=== PATIENT | male | born 1960 | race Caucasian/White ===

== ENCOUNTER → 2018-12-22 | Day surgery (SDC) | payer MEDICARE ==
[~2018-12-22] MED LIST: ALDACTONE25 MG PO; AMIODARONE HCL200 MG PO; Acetazolamide PO; BACITRACIN 50,000 UNIT VIAL ONE; BUPIVACAINE HCL 0.5% INJ 30 ML VIAL INJ ONE; CEFAZOLIN SOD 1 GM/NS 50ML 50 ML IV ONE; COUMADIN5 MG PO; FERROUS SULFAT325 MG PO; FLOMAX0.4 MG PO; FUROSEMIDE10 MG/1 M1 PO; GENERLAC10 GM/15 M PO; LIDOCAINE 1% W/EPINEPHRINE 20 ML VIAL ONE; METOPROLOL SUCC25 MG PO; MUPIROCIN 2% OINT 22 GM TUBE ONE; PANTOPRAZOLE SO40 MG PO; POTASSIUM CHLO20 ME1 PO; SYNTHROID50 MCG PO; TORSEMIDE10 MG PO
--- OUTSIDE RECORDS SUMMARY | 2018-12-22 05:52 | XMS REPORT | Clinical Summary ---
Author Author [facility] Address Unknown Phone Unavailable Care Team Providers Care Furnace Combustion Tester Name Role Phone Uriel Landrum PCP Allergies Comments Active Allergy Reactions Severity Noted Date Sulfa (Sulfonamide 01/23/2017 Antibiotics) Medications End Date Status Medication Sig Dispensed Refills Start Date Active acetaZOLAMIDE (DIAMOX) Take 500 mg 0 250 MG tablet by mouth 2 (two) times daily. Active pantoprazole (PROTONIX) Take 40 mg by 0 40 MG tablet mouth 2 (two) times daily. Active tamsulosin (FLOMAX) 0.4 Take 0.4 mg 0 mg Cp24 24 hr capsule by mouth daily. Active amiodarone (PACERONE) 200 Take 200 mg 0 MG tablet by mouth 2 (two) times daily. Active ferrous sulfate 325 (65 Take 325 mg 0 FE) MG tablet by mouth 2 (two) times daily before meals. Active lactulose (CEPHULAC) 10 Take 30 g by 0 gram packet mouth daily. Active torsemide (DEMADEX) 20 MG Take 20 mg by 0 tablet mouth 3 (three) times daily . Active potassium chloride SA Take 20 mEq 0 (K-DUR,KLOR-CON) 20 MEQ by mouth 2 tablet (two) times daily. Active bacitracin 500 unit/gram Apply 1 1 packet 30 Pack packet packet 7 topically 2 (two) times daily. 02/20/2018 aspirin 325 MG EC tablet Take 1 tablet 0 (325 mg 7 total) by mouth daily. 02/20/2018 levETIRAcetam (KEPPRA) Take 2 120 tablet 11 750 MG tablet tablets 7 (1,500 mg total) by mouth 2 (two) times daily. 02/20/2018 levothyroxine (SYNTHROID, Take 1 tablet 30 tablet LEVOTHROID) 125 MCG (125 mcg 7 tablet total) by mouth Every morning on an empty stomach. 02/20/2018 metoprolol (LOPRESSOR) 25 Take 0.5 30 tablet MG tablet tablets (12.5 7 mg total) by mouth 2 (two) times daily. Active Problems Problem Noted Date Constipation 02/01/2017 Urinary retention 02/01/2017 JORGE L (acute kidney injury) 01/28/2017 Hypothyroidism 01/28/2017 BPH (benign prostatic hypertrophy) 01/28/2017 Physical deconditioning 01/28/2017 Fracture, foot 01/28/2017 Rhabdomyolysis 01/28/2017 Pericardial effusion 01/28/2017 Dysphagia 01/28/2017 Idiopathic hypotension 01/27/2017 Cellulitis and abscess of leg 01/27/2017 Intraventricular hemorrhage 01/24/2017 Respiratory failure requiring intubation 01/24/2017 Atrial fibrillation 01/24/2017 Coagulopathy 01/24/2017 Essential hypertension 01/24/2017 ICH (intracerebral hemorrhage) 01/23/2017 Social History Date Tobacco Use Types Packs/Day Years Used Unknown If Ever Smoked Sex Assigned at Date Recorded Not on file Industry Job Start Date Occupation Not on file Not on file Not on file Travel End Travel History Travel Start No recent travel history available. Last Filed Vital Signs Not on file Plan of Treatment Not on file Implants Device Identifier Shelf Expiration Date Model / Serial / Lot Implanted Type Area Manufactur er 08/27/2017 [id number] / / [id number] Drsng Mtrx Bilayer 2x2in Strx1 Tissue Left: Foot [employer] [id number] - [id number] Graft/Subs LIFESCI Implanted: Qty: 1 on 02/03/2017 by Guanaco Mendoza DPM Results Not on fileafter 12/21/2017 Insurance Payer Benefit Subscriber ID Type Phone Address Plan / Group [employer]UE [employer] BCBS ADV xxxxxxxxxxxx [phone] [id number] [place] [address] EXCHANGE Advance Directives For more information, please contact: [address] [address] Date Inactivated Comments Code Status Date Activated 02/20/2017 11:29 PM Full Code 01/30/2017 5:41 AM This code status was determined by: Patient 01/29/2017 9:32 PM Full Code 01/23/2017 9:12 PM This code status was determined by: Patient
--- OUTSIDE RECORDS SUMMARY | 2018-12-22 05:53 | XMS REPORT ---
Author Author [facility] Address Unknown Phone Unavailable Care Team Providers Care Motorcycle Repairer Name Role Phone DORIS KEVIN Unavailable Unavailable Problems This patient has no known problems. Allergies, Adverse Reactions, Alerts This patient has no known allergies or adverse reactions. Medications This patient has no known medications. Results Test Description Test Time Test Comments Text Results Atomic Results Result Comments POCT-GLUCOSE METER 2017-02-20 11:09:00 POC-GLUCOSE METER (BEAKER) (test dgem=0793) 112 mg/dL 70-110 TESTED AT [address] [address] POCT-GLUCOSE [id number] 07:44:00* Test Item Value Reference Range Comments POC-GLUCOSE METER (BEAKER) (test eivn=5385) 100 mg/dL 70-110 TESTED AT [place] [id number] [facility] [address] [id number] 06:38:00* Test Item Value Reference Range Comments MAGNESIUM (BEAKER) (test qfmr=658) 1.5 mg/dL 1.6-2.6 COMPREHENSIVE METABOLIC [id number] 06:38:00* Test Item Value Reference Range Comments TOTAL PROTEIN (BEAKER) (test zhan=008) 6.0 gm/dL 6.0-8.3 ALBUMIN (BEAKER) (test ttpe=7288) 3.0 g/dL 3.5-5.0 ALKALINE PHOSPHATASE (BEAKER) (test aosf=236) 107 U/L 40-150 BILIRUBIN TOTAL (BEAKER) (test zixt=788) 0.6 mg/dL 0.2-1.2 SODIUM (BEAKER) (test thyq=231) 139 meq/L 136-145 POTASSIUM (BEAKER) (test qrky=744) 4.0 meq/L 3.5-5.1 CHLORIDE (BEAKER) (test aflm=033) 108 meq/L 98-107 CO2 (BEAKER) (test jtmt=627) 26 meq/L 22-29 BLOOD UREA NITROGEN (BEAKER) (test hzhn=590) 9 mg/dL 7-21 CREATININE (BEAKER) (test nvry=906) 0.84 mg/dL 0.57-1.25 GLUCOSE RANDOM (BEAKER) (test wpzp=260) 87 mg/dL 70-105 CALCIUM (BEAKER) (test dzww=124) 8.7 mg/dL 8.4-10.2 AST (SGOT) (BEAKER) (test ptmf=707) 22 U/L 5-34 ALT (SGPT) (BEAKER) (test kczw=900) 11 U/L 6-55 EGFR (BEAKER) (test tnyf=3256) 94 mL/min/1.73 sq m ESTIMATED GFR IS NOT ACCURATE CREATININE CLEARANCE IN PREDICTING GLOMERULAR FILTRATION RATE. ESTIMATED GFR IS NOT APPLICABLE FOR DIALYSIS PATIENTS. [id number] 06:34:00* Test Item Value Reference Range Comments PHOSPHORUS (BEAKER) (test pmir=811) 2.0 mg/dL 2.3-4.7 POCT-GLUCOSE [id number] 23:19:00* Test Item Value Reference Range Comments POC-GLUCOSE METER (BEAKER) (test fvjm=3669) 99 mg/dL 70-110 TESTED AT [address] [address] POCT-GLUCOSE [id number] 21:02:00* Test Item Value Reference Range Comments POC-GLUCOSE METER (BEAKER) (test mfma=6462) 82 mg/dL 70-110 TESTED AT [address] [address] POCT-GLUCOSE [id number] 16:31:00* Test Item Value Reference Range Comments POC-GLUCOSE METER (BEAKER) (test hscm=4681) 93 mg/dL 70-110 TESTED AT [address] [address] POCT-GLUCOSE [id number] 12:01:00* Test Item Value Reference Range Comments POC-GLUCOSE METER (BEAKER) (test bfhh=7724) 138 mg/dL 70-110 TESTED AT [address] [address] POCT-GLUCOSE [id number] 08:02:00* Test Item Value Reference Range Comments POC-GLUCOSE METER (BEAKER) (test qwrk=6814) 95 mg/dL 70-110 TESTED AT [place] [address] [facility] [address] CBC W/PLT COUNT & AUTO [id number] 07:50:00* Test Item Value Reference Range Comments WHITE BLOOD CELL COUNT (BEAKER) (test ngzb=655) 6.2 K/ L 3.5-10.5 RED BLOOD CELL COUNT (BEAKER) (test yaci=592) 2.97 M/ L 4.63-6.08 HEMOGLOBIN (BEAKER) (test meza=084) 9.6 GM/DL 13.7-17.5 HEMATOCRIT (BEAKER) (test myzf=389) 31.4 % 40.1-51.0 MEAN CORPUSCULAR VOLUME (BEAKER) (test jynp=829) 105.7 fL 79.0-92.2 MEAN CORPUSCULAR HEMOGLOBIN (BEAKER) (test bnwr=482) 32.3 pg 25.7-32.2 MEAN CORPUSCULAR HEMOGLOBIN CONC (BEAKER) (test iqjc=481) 30.6 GM/DL 32.3-36.5 RED CELL DISTRIBUTION WIDTH (BEAKER) (test mvjc=838) 14.8 % 11.6-14.4 PLATELET COUNT (BEAKER) (test cxrt=181) 144 K/CU MM 150-450 MEAN PLATELET VOLUME (BEAKER) (test tirx=437) 10.6 fL 9.4-12.4 NUCLEATED RED BLOOD CELLS (BEAKER) (test powv=222) 0 /100 WBC 0-0 NEUTROPHILS RELATIVE PERCENT (BEAKER) (test bfrw=189) 61 % LYMPHOCYTES RELATIVE PERCENT (BEAKER) (test uwfw=017) 19 % MONOCYTES RELATIVE PERCENT (BEAKER) (test rqgw=036) 13 % EOSINOPHILS RELATIVE PERCENT (BEAKER) (test natv=900) 2 % BASOPHILS RELATIVE PERCENT (BEAKER) (test xwsg=231) 1 % NEUTROPHILS ABSOLUTE COUNT (BEAKER) (test ecwk=394) 3.79 K/ L 1.78-5.38 LYMPHOCYTES ABSOLUTE COUNT (BEAKER) (test lxdo=305) 1.17 K/ L 1.32-3.57 MONOCYTES ABSOLUTE COUNT (BEAKER) (test zljt=919) 0.80 K/ L 0.30-0.82 EOSINOPHILS ABSOLUTE COUNT (BEAKER) (test hbwe=450) 0.11 K/ L 0.04-0.54 BASOPHILS ABSOLUTE COUNT (BEAKER) (test nqnd=912) 0.04 K/ L 0.01-0.08 IMMATURE GRANULOCYTES-RELATIVE PERCENT (BEAKER) (test jxzq=0223) 5 % 0-1 [id number] 06:34:00* Test Item Value Reference Range Comments PHOSPHORUS (BEAKER) (test euyk=184) 1.7 mg/dL 2.3-4.7 [id number] 06:34:00* Test Item Value Reference Range Comments MAGNESIUM (BEAKER) (test cbbq=710) 1.5 mg/dL 1.6-2.6 COMPREHENSIVE METABOLIC [id number] 06:34:00* Test Item Value Reference Range Comments TOTAL PROTEIN (BEAKER) (test vcek=682) 6.1 gm/dL 6.0-8.3 ALBUMIN (BEAKER) (test dbli=2531) 3.0 g/dL 3.5-5.0 ALKALINE PHOSPHATASE (BEAKER) (test ybcy=374) 108 U/L 40-150 BILIRUBIN TOTAL (BEAKER) (test pabl=802) 0.5 mg/dL 0.2-1.2 SODIUM (BEAKER) (test ylho=163) 138 meq/L 136-145 POTASSIUM (BEAKER) (test ulwi=099) 4.1 meq/L 3.5-5.1 CHLORIDE (BEAKER) (test wfeg=559) 108 meq/L 98-107 CO2 (BEAKER) (test dkcm=818) 23 meq/L 22-29 BLOOD UREA NITROGEN (BEAKER) (test ejve=403) 12 mg/dL 7-21 CREATININE (BEAKER) (test tfuv=224) 0.96 mg/dL 0.57-1.25 GLUCOSE RANDOM (BEAKER) (test sggt=330) 86 mg/dL 70-105 CALCIUM (BEAKER) (test qipo=776) 8.7 mg/dL 8.4-10.2 AST (SGOT) (BEAKER) (test kprj=461) 24 U/L 5-34 ALT (SGPT) (BEAKER) (test hedb=445) 13 U/L 6-55 EGFR (BEAKER) (test sjvf=6542) 81 mL/min/1.73 sq m ESTIMATED GFR IS NOT ACCURATE CREATININE CLEARANCE IN PREDICTING GLOMERULAR FILTRATION RATE. ESTIMATED GFR IS NOT APPLICABLE FOR DIALYSIS PATIENTS. CALCIUM, [id number] 04:24:00* Test Item Value Reference Range Comments CALCIUM IONIZED (BEAKER) (test pttl=157) 1.19 mmol/L 1.12-1.27 PH, BLOOD (BEAKER) (test wbge=6504) 7.36 POCT-GLUCOSE [id number] 21:20:00* Test Item Value Reference Range Comments POC-GLUCOSE METER (BEAKER) (test yjsh=8934) 106 mg/dL 70-110 TESTED AT [address] [address] POCT-GLUCOSE [id number] 16:41:00* Test Item Value Reference Range Comments POC-GLUCOSE METER (BEAKER) (test fxta=3655) 109 mg/dL 70-110 TESTED AT [address] [address] POCT-GLUCOSE [id number] 11:56:00* Test Item Value Reference Range Comments POC-GLUCOSE METER (BEAKER) (test agej=2458) 138 mg/dL 70-110 TESTED AT [address] [address] POCT-GLUCOSE [id number] 08:05:00* Test Item Value Reference Range Comments POC-GLUCOSE METER (BEAKER) (test hapv=1702) 107 mg/dL 70-110 TESTED AT [address] [address] CBC W/PLT COUNT & AUTO [id number] 07:18:00* Test Item Value Reference Range Comments WHITE BLOOD CELL COUNT (BEAKER) (test rugu=959) 6.4 K/ L 3.5-10.5 RED BLOOD CELL COUNT (BEAKER) (test eyrn=353) 2.95 M/ L 4.63-6.08 HEMOGLOBIN (BEAKER) (test vjwo=653) 9.6 GM/DL 13.7-17.5 HEMATOCRIT (BEAKER) (test fziv=887) 30.8 % 40.1-51.0 MEAN CORPUSCULAR VOLUME (BEAKER) (test kzkd=518) 104.4 fL 79.0-92.2 MEAN CORPUSCULAR HEMOGLOBIN (BEAKER) (test hiea=950) 32.5 pg 25.7-32.2 MEAN CORPUSCULAR HEMOGLOBIN CONC (BEAKER) (test taso=034) 31.2 GM/DL 32.3-36.5 RED CELL DISTRIBUTION WIDTH (BEAKER) (test jpmp=510) 14.8 % 11.6-14.4 PLATELET COUNT (BEAKER) (test ugxv=067) 157 K/CU MM 150-450 MEAN PLATELET VOLUME (BEAKER) (test ghie=452) 10.4 fL 9.4-12.4 NUCLEATED RED BLOOD CELLS (BEAKER) (test efjp=275) 0 /100 WBC 0-0 NEUTROPHILS RELATIVE PERCENT (BEAKER) (test buaz=264) 61 % LYMPHOCYTES RELATIVE PERCENT (BEAKER) (test duwu=697) 17 % MONOCYTES RELATIVE PERCENT (BEAKER) (test djze=967) 14 % EOSINOPHILS RELATIVE PERCENT (BEAKER) (test bgjf=271) 1 % BASOPHILS RELATIVE PERCENT (BEAKER) (test sbrj=158) 1 % NEUTROPHILS ABSOLUTE COUNT (BEAKER) (test ysqp=303) 3.85 K/ L 1.78-5.38 LYMPHOCYTES ABSOLUTE COUNT (BEAKER) (test fono=615) 1.05 K/ L 1.32-3.57 MONOCYTES ABSOLUTE COUNT (BEAKER) (test ozlw=348) 0.91 K/ L 0.30-0.82 EOSINOPHILS ABSOLUTE COUNT (BEAKER) (test zixq=433) 0.09 K/ L 0.04-0.54 BASOPHILS ABSOLUTE COUNT (BEAKER) (test xsit=393) 0.04 K/ L 0.01-0.08 IMMATURE GRANULOCYTES-RELATIVE PERCENT (BEAKER) (test wmun=6761) 7 % 0-1 [id number] 07:14:00* Test Item Value Reference Range Comments PHOSPHORUS (BEAKER) (test zosl=679) 2.3 mg/dL 2.3-4.7 [id number] 07:14:00* Test Item Value Reference Range Comments MAGNESIUM (BEAKER) (test weel=183) 1.7 mg/dL 1.6-2.6 COMPREHENSIVE METABOLIC [id number] 07:14:00* Test Item Value Reference Range Comments TOTAL PROTEIN (BEAKER) (test sbdv=418) 6.2 gm/dL 6.0-8.3 ALBUMIN (BEAKER) (test jnid=1290) 3.1 g/dL 3.5-5.0 ALKALINE PHOSPHATASE (BEAKER) (test nycm=965) 108 U/L 40-150 BILIRUBIN TOTAL (BEAKER) (test nwqa=256) 0.6 mg/dL 0.2-1.2 SODIUM (BEAKER) (test xauu=268) 137 meq/L 136-145 POTASSIUM (BEAKER) (test wujy=470) 3.9 meq/L 3.5-5.1 CHLORIDE (BEAKER) (test dtdf=105) 106 meq/L 98-107 CO2 (BEAKER) (test solk=022) 25 meq/L 22-29 BLOOD UREA NITROGEN (BEAKER) (test ffiq=139) 12 mg/dL 7-21 CREATININE (BEAKER) (test eclf=065) 1.07 mg/dL 0.57-1.25 GLUCOSE RANDOM (BEAKER) (test ubky=821) 98 mg/dL 70-105 CALCIUM (BEAKER) (test gpzl=679) 8.5 mg/dL 8.4-10.2 AST (SGOT) (BEAKER) (test dneg=196) 25 U/L 5-34 ALT (SGPT) (BEAKER) (test gegs=566) 13 U/L 6-55 EGFR (BEAKER) (test tlgf=7200) 71 mL/min/1.73 sq m ESTIMATED GFR IS NOT ACCURATE CREATININE CLEARANCE IN PREDICTING GLOMERULAR FILTRATION RATE. ESTIMATED GFR IS NOT APPLICABLE FOR DIALYSIS PATIENTS. CALCIUM, [id number] 06:59:00* Test Item Value Reference Range Comments CALCIUM IONIZED (BEAKER) (test nogu=686) 1.05 mmol/L 1.12-1.27 PH, BLOOD (BEAKER) (test qegv=0602) 7.29 POCT-GLUCOSE [id number] 20:51:00* Test Item Value Reference Range Comments POC-GLUCOSE METER (BEAKER) (test grbd=1354) 122 mg/dL 70-110 TESTED AT [facility] [address] [facility] [address] POCT-GLUCOSE [id number] 18:09:00* Test Item Value Reference Range Comments POC-GLUCOSE METER (BEAKER) (test gnmu=2879) 108 mg/dL 70-110 TESTED AT [facility] [address] [facility] [address] HEMOGLOBIN AND [id number] 14:40:00* Test Item Value Reference Range Comments HEMOGLOBIN (BEAKER) (test wmid=815) 10.0 GM/DL 13.7-17.5 HEMATOCRIT (BEAKER) (test oqma=240) 32.0 % 40.1-51.0 POCT-GLUCOSE [id number] 12:44:00* Test Item Value Reference Range Comments POC-GLUCOSE METER (BEAKER) (test rbzn=8367) 119 mg/dL 70-110 TESTED AT [facility] [address] [facility] [address] POCT-GLUCOSE [id number] 07:50:00* Test Item Value Reference Range Comments POC-GLUCOSE METER (BEAKER) (test snew=7121) 90 mg/dL 70-110 TESTED AT [facility] [address] [facility] [address] [id number] 07:37:00* Test Item Value Reference Range Comments PHOSPHORUS (BEAKER) (test jxeb=606) 2.3 mg/dL 2.3-4.7 Specimen slightly hemolyzed COMPREHENSIVE METABOLIC [id number] 07:37:00* Test Item Value Reference Range Comments TOTAL PROTEIN (BEAKER) (test rmzs=872) 6.9 gm/dL 6.0-8.3 Specimen slightly hemolyzed ALBUMIN (BEAKER) (test oehi=5794) 3.3 g/dL 3.5-5.0 Specimen slightly hemolyzed ALKALINE PHOSPHATASE (BEAKER) (test heyw=013) 113 U/L 40-150 BILIRUBIN TOTAL (BEAKER) (test xjin=240) 0.7 mg/dL 0.2-1.2 Specimen slightly hemolyzed SODIUM (BEAKER) (test ydce=028) 139 meq/L 136-145 POTASSIUM (BEAKER) (test liem=399) 3.8 meq/L 3.5-5.1 Specimen slightly hemolyzed CHLORIDE (BEAKER) (test wggp=042) 105 meq/L 98-107 CO2 (BEAKER) (test rjbf=766) 24 meq/L 22-29 BLOOD UREA NITROGEN (BEAKER) (test qcsf=570) 17 mg/dL 7-21 CREATININE (BEAKER) (test tnpl=965) 1.37 mg/dL 0.57-1.25 Specimen slightly hemolyzed GLUCOSE RANDOM (BEAKER) (test dcxl=012) 81 mg/dL 70-105 CALCIUM (BEAKER) (test qvrc=399) 8.4 mg/dL 8.4-10.2 AST (SGOT) (BEAKER) (test ecjn=700) 27 U/L 5-34 Specimen slightly hemolyzed ALT (SGPT) (BEAKER) (test ttoq=881) 14 U/L 6-55 Specimen slightly hemolyzed EGFR (BEAKER) (test itru=5833) 54 mL/min/1.73 sq m ESTIMATED GFR IS NOT ACCURATE CREATININE CLEARANCE IN PREDICTING GLOMERULAR FILTRATION RATE. ESTIMATED GFR IS NOT APPLICABLE FOR DIALYSIS PATIENTS. [id number] 07:36:00* Test Item Value Reference Range Comments MAGNESIUM (BEAKER) (test dpwu=090) 2.0 mg/dL 1.6-2.6 Specimen slightly hemolyzed PROTHROMBIN [id number] 06:12:00* Test Item Value Reference Range Comments PROTIME (BEAKER) (test pigb=325) 15.0 seconds 11.7-14.7 INR (BEAKER) (test vedy=596) 1.2 <=5.9 RECOMMENDED COUMADIN/WARFARIN INR THERAPY RANGESSTANDARD DOSE: 2.0 - 3.0 Inclu abby: PROPHYLAXIS for venous thrombosis, systemic embolization; TREATMENT for odalys ous thrombosis and/or pulmonary embolus.HIGH RISK: Target INR is 2.5-3.5 for pat ients with mechanical heart valves.POCT-GLUCOSE [id number] 21:37:00* Test Item Value Reference Range Comments POC-GLUCOSE METER (BEAKER) (test ajay=8630) 107 mg/dL 70-110 TESTED AT [place] [id number] [facility] [address] POCT-GLUCOSE [id number] 17:07:00* Test Item Value Reference Range Comments POC-GLUCOSE METER (BEAKER) (test uelv=6912) 98 mg/dL 70-110 TESTED AT [place] [id number] [facility] [address] POCT-GLUCOSE [id number] 11:45:00* Test Item Value Reference Range Comments POC-GLUCOSE METER (BEAKER) (test fjqn=2276) 132 mg/dL 70-110 TESTED AT [place] [id number] [facility] [address] POCT-GLUCOSE [id number] 08:15:00* Test Item Value Reference Range Comments POC-GLUCOSE METER (BEAKER) (test bjlr=4822) 137 mg/dL 70-110 TESTED AT [facility] [address] [facility] [address] [id number] 07:11:00* Test Item Value Reference Range Comments PHOSPHORUS (BEAKER) (test cjlj=594) 3.3 mg/dL 2.3-4.7 [id number] 07:11:00* Test Item Value Reference Range Comments MAGNESIUM (BEAKER) (test vjyc=401) 1.6 mg/dL 1.6-2.6 COMPREHENSIVE METABOLIC [id number] 07:11:00* Test Item Value Reference Range Comments TOTAL PROTEIN (BEAKER) (test cfhv=187) 7.0 gm/dL 6.0-8.3 ALBUMIN (BEAKER) (test pzuo=8581) 3.4 g/dL 3.5-5.0 ALKALINE PHOSPHATASE (BEAKER) (test izxq=838) 112 U/L 40-150 BILIRUBIN TOTAL (BEAKER) (test pyku=941) 0.9 mg/dL 0.2-1.2 SODIUM (BEAKER) (test ljzv=729) 135 meq/L 136-145 POTASSIUM (BEAKER) (test uysw=754) 3.5 meq/L 3.5-5.1 CHLORIDE (BEAKER) (test kbgm=965) 99 meq/L 98-107 CO2 (BEAKER) (test rxky=902) 27 meq/L 22-29 BLOOD UREA NITROGEN (BEAKER) (test yzoj=947) 24 mg/dL 7-21 CREATININE (BEAKER) (test pvee=633) 1.81 mg/dL 0.57-1.25 GLUCOSE RANDOM (BEAKER) (test snoc=347) 93 mg/dL 70-105 CALCIUM (BEAKER) (test fysx=199) 8.6 mg/dL 8.4-10.2 AST (SGOT) (BEAKER) (test kcaj=836) 27 U/L 5-34 ALT (SGPT) (BEAKER) (test klfp=890) 14 U/L 6-55 EGFR (BEAKER) (test tmup=4806) 39 mL/min/1.73 sq m ESTIMATED GFR IS NOT ACCURATE CREATININE CLEARANCE IN PREDICTING GLOMERULAR FILTRATION RATE. ESTIMATED GFR IS NOT APPLICABLE FOR DIALYSIS PATIENTS. POCT-GLUCOSE [id number] 21:14:00* Test Item Value Reference Range Comments POC-GLUCOSE METER (BEAKER) (test qqzt=9512) 116 mg/dL 70-110 TESTED AT [facility] [address] [facility] [address] POCT-GLUCOSE [id number] 17:09:00* Test Item Value Reference Range Comments POC-GLUCOSE METER (BEAKER) (test xqzj=0740) 111 mg/dL 70-110 TESTED AT [address] [address] POCT-GLUCOSE [id number] 12:17:00* Test Item Value Reference Range Comments POC-GLUCOSE METER (BEAKER) (test vqpx=0185) 122 mg/dL 70-110 TESTED AT [address] [address] POCT-GLUCOSE [id number] 08:28:00* Test Item Value Reference Range Comments POC-GLUCOSE METER (BEAKER) (test gptk=5988) 110 mg/dL 70-110 TESTED AT [address] [address] URINALYSIS W/ [id number] 07:30:00* Test Item Value Reference Range Comments COLOR (BEAKER) (test jwmf=748) Red CLARITY (BEAKER) (test xlqw=278) Cloudy SPECIFIC GRAVITY UA (BEAKER) (test jstf=866) 1.020 1.001-1.035 PH UA (BEAKER) (test efci=795) 6.0 5.0-8.0 PROTEIN UA (BEAKER) (test lyxz=344) 300 mg/dL Negative GLUCOSE UA (BEAKER) (test vhvn=530) Negative Negative KETONES UA (BEAKER) (test flfh=308) Negative Negative BILIRUBIN UA (BEAKER) (test gwfc=782) Negative Negative BLOOD UA (BEAKER) (test lbzm=135) Large Negative NITRITE UA (BEAKER) (test nqdp=591) Negative Negative LEUKOCYTE ESTERASE UA (BEAKER) (test gyud=873) Small Negative UROBILINOGEN UA (BEAKER) (test ytai=107) 0.2 mg/dL 0.2-1.0 RBC UA (BEAKER) (test yrwl=948) > /HPF WBC UA (BEAKER) (test zfbs=505) > /HPF SOURCE(BEAKER) (test fald=3283) [id number] 07:08:00* Test Item Value Reference Range Comments PHOSPHORUS (BEAKER) (test lvpp=318) 4.9 mg/dL 2.3-4.7 [id number] 07:08:00* Test Item Value Reference Range Comments MAGNESIUM (BEAKER) (test iwou=769) 1.7 mg/dL 1.6-2.6 COMPREHENSIVE METABOLIC [id number] 07:08:00* Test Item Value Reference Range Comments TOTAL PROTEIN (BEAKER) (test ccmx=491) 7.2 gm/dL 6.0-8.3 ALBUMIN (BEAKER) (test kqtd=5311) 3.5 g/dL 3.5-5.0 ALKALINE PHOSPHATASE (BEAKER) (test gejb=608) 118 U/L 40-150 BILIRUBIN TOTAL (BEAKER) (test btlq=859) 1.0 mg/dL 0.2-1.2 SODIUM (BEAKER) (test eduw=960) 142 meq/L 136-145 POTASSIUM (BEAKER) (test abai=447) 3.4 meq/L 3.5-5.1 CHLORIDE (BEAKER) (test bovm=365) 103 meq/L 98-107 CO2 (BEAKER) (test vlto=656) 26 meq/L 22-29 BLOOD UREA NITROGEN (BEAKER) (test oofe=687) 22 mg/dL 7-21 CREATININE (BEAKER) (test kixm=720) 1.82 mg/dL 0.57-1.25 GLUCOSE RANDOM (BEAKER) (test oica=478) 103 mg/dL 70-105 CALCIUM (BEAKER) (test mhse=181) 9.2 mg/dL 8.4-10.2 AST (SGOT) (BEAKER) (test coit=785) 26 U/L 5-34 ALT (SGPT) (BEAKER) (test qsgx=755) 15 U/L 6-55 EGFR (BEAKER) (test cqye=6432) 39 mL/min/1.73 sq m ESTIMATED GFR IS NOT ACCURATE CREATININE CLEARANCE IN PREDICTING GLOMERULAR FILTRATION RATE. ESTIMATED GFR IS NOT APPLICABLE FOR DIALYSIS PATIENTS. B-TYPE NATRIURETIC FACTOR (BNP)2017-02-15 06:50:00* Test Item Value Reference Range Comments B-TYPE NATRIURETIC PEPTIDE (BEAKER) (test whga=761) 53 pg/mL 0-100 POCT-GLUCOSE [id number] 06:13:00* Test Item Value Reference Range Comments POC-GLUCOSE METER (BEAKER) (test cieg=4217) 121 mg/dL 70-110 TESTED AT [address] [address] [id number] 21:58:00* Test Item Value Reference Range Comments MAGNESIUM (BEAKER) (test ubin=571) 1.9 mg/dL 1.6-2.6 BASIC METABOLIC [id number] 21:58:00* Test Item Value Reference Range Comments SODIUM (BEAKER) (test chxd=582) 141 meq/L 136-145 POTASSIUM (BEAKER) (test vchj=157) 3.4 meq/L 3.5-5.1 CHLORIDE (BEAKER) (test aheu=236) 100 meq/L 98-107 CO2 (BEAKER) (test vbxf=667) 30 meq/L 22-29 BLOOD UREA NITROGEN (BEAKER) (test hoyb=681) 19 mg/dL 7-21 CREATININE (BEAKER) (test ihem=112) 1.63 mg/dL 0.57-1.25 GLUCOSE RANDOM (BEAKER) (test eadq=357) 92 mg/dL 70-105 CALCIUM (BEAKER) (test cycl=210) 10.2 mg/dL 8.4-10.2 EGFR (BEAKER) (test ezaa=1176) 44 mL/min/1.73 sq m ESTIMATED GFR IS NOT ACCURATE CREATININE CLEARANCE IN PREDICTING GLOMERULAR FILTRATION RATE. ESTIMATED GFR IS NOT APPLICABLE FOR DIALYSIS PATIENTS. POCT-GLUCOSE [id number] 21:49:00* Test Item Value Reference Range Comments POC-GLUCOSE METER (BEAKER) (test ndwh=1993) 105 mg/dL 70-110 TESTED AT [address] [address] POCT-GLUCOSE [id number] 17:52:00* Test Item Value Reference Range Comments POC-GLUCOSE METER (BEAKER) (test eypv=5724) 105 mg/dL 70-110 TESTED AT [address] [address] POCT-GLUCOSE [id number] 12:08:00* Test Item Value Reference Range Comments POC-GLUCOSE METER (BEAKER) (test scia=7930) 97 mg/dL 70-110 TESTED AT [address] [address] [id number] 06:33:00* Test Item Value Reference Range Comments PHOSPHORUS (BEAKER) (test lvae=774) 3.7 mg/dL 2.3-4.7 [id number] 06:33:00* Test Item Value Reference Range Comments MAGNESIUM (BEAKER) (test civf=942) 1.7 mg/dL 1.6-2.6 COMPREHENSIVE METABOLIC [id number] 06:33:00* Test Item Value Reference Range Comments TOTAL PROTEIN (BEAKER) (test lpdl=903) 6.8 gm/dL 6.0-8.3 ALBUMIN (BEAKER) (test ophr=3775) 3.2 g/dL 3.5-5.0 ALKALINE PHOSPHATASE (BEAKER) (test xfxs=791) 98 U/L 40-150 BILIRUBIN TOTAL (BEAKER) (test ndkl=635) 0.8 mg/dL 0.2-1.2 SODIUM (BEAKER) (test feyv=821) 140 meq/L 136-145 POTASSIUM (BEAKER) (test nuwr=466) 3.5 meq/L 3.5-5.1 CHLORIDE (BEAKER) (test izta=616) 104 meq/L 98-107 CO2 (BEAKER) (test svfr=388) 28 meq/L 22-29 BLOOD UREA NITROGEN (BEAKER) (test henk=999) 19 mg/dL 7-21 CREATININE (BEAKER) (test xhhv=028) 1.43 mg/dL 0.57-1.25 GLUCOSE RANDOM (BEAKER) (test bbii=285) 110 mg/dL 70-105 CALCIUM (BEAKER) (test ksjq=530) 8.9 mg/dL 8.4-10.2 AST (SGOT) (BEAKER) (test lige=930) 19 U/L 5-34 ALT (SGPT) (BEAKER) (test yogu=952) 11 U/L 6-55 EGFR (BEAKER) (test znew=9599) 51 mL/min/1.73 sq m ESTIMATED GFR IS NOT ACCURATE CREATININE CLEARANCE IN PREDICTING GLOMERULAR FILTRATION RATE. ESTIMATED GFR IS NOT APPLICABLE FOR DIALYSIS PATIENTS. POCT-GLUCOSE [id number] 21:13:00* Test Item Value Reference Range Comments POC-GLUCOSE METER (BEAKER) (test azod=2761) 111 mg/dL 70-110 TESTED AT [facility] [address] [facility] [address] POCT-GLUCOSE [id number] 16:58:00* Test Item Value Reference Range Comments POC-GLUCOSE METER (BEAKER) (test lves=6820) 112 mg/dL 70-110 TESTED AT [facility] [address] [facility] [address] POCT-GLUCOSE [id number] 11:14:00* Test Item Value Reference Range Comments POC-GLUCOSE METER (BEAKER) (test zgbb=5110) 132 mg/dL 70-110 TESTED AT [place] [id number] [facility] [address] POCT-GLUCOSE [id number] 08:07:00* Test Item Value Reference Range Comments POC-GLUCOSE METER (BEAKER) (test yccg=0021) 137 mg/dL 70-110 TESTED AT [place] [id number] [facility] [address] [id number] 07:50:00* Test Item Value Reference Range Comments MAGNESIUM (BEAKER) (test dhkh=484) 2.0 mg/dL 1.6-2.6 COMPREHENSIVE METABOLIC [id number] 07:44:00* Test Item Value Reference Range Comments TOTAL PROTEIN (BEAKER) (test flje=401) 7.4 gm/dL 6.0-8.3 ALBUMIN (BEAKER) (test bqoo=3776) 3.5 g/dL 3.5-5.0 ALKALINE PHOSPHATASE (BEAKER) (test gfel=493) 101 U/L 40-150 BILIRUBIN TOTAL (BEAKER) (test grrx=850) 0.8 mg/dL 0.2-1.2 SODIUM (BEAKER) (test thum=935) 141 meq/L 136-145 POTASSIUM (BEAKER) (test siab=502) 3.2 meq/L 3.5-5.1 CHLORIDE (BEAKER) (test acuk=234) 104 meq/L 98-107 CO2 (BEAKER) (test jzjg=292) 27 meq/L 22-29 BLOOD UREA NITROGEN (BEAKER) (test jjej=194) 18 mg/dL 7-21 CREATININE (BEAKER) (test rboh=266) 1.28 mg/dL 0.57-1.25 GLUCOSE RANDOM (BEAKER) (test cghs=940) 111 mg/dL 70-105 CALCIUM (BEAKER) (test yqsl=242) 8.9 mg/dL 8.4-10.2 AST (SGOT) (BEAKER) (test oadw=081) 17 U/L 5-34 ALT (SGPT) (BEAKER) (test wflq=460) 6 U/L 6-55 EGFR (BEAKER) (test ciwg=9103) 58 mL/min/1.73 sq m ESTIMATED GFR IS NOT ACCURATE CREATININE CLEARANCE IN PREDICTING GLOMERULAR FILTRATION RATE. ESTIMATED GFR IS NOT APPLICABLE FOR DIALYSIS PATIENTS. POCT-GLUCOSE [id number] 21:03:00* Test Item Value Reference Range Comments POC-GLUCOSE METER (BEAKER) (test rokn=6669) 119 mg/dL 70-110 TESTED AT [address] [address] POCT-GLUCOSE [id number] 16:53:00* Test Item Value Reference Range Comments POC-GLUCOSE METER (BEAKER) (test wwup=8361) 127 mg/dL 70-110 TESTED AT [address] [address] ANTI-NUCLEAR ANTIBODY (SOURAV)2017-02-12 15:06:00* Test Item Value Reference Range Comments ANTI-NUCLEAR ANTIBODY (SOURAV) (BEAKER) (test vsku=063) Negative Negative POCT-GLUCOSE [id number] 12:07:00* Test Item Value Reference Range Comments POC-GLUCOSE METER (BEAKER) (test sgaf=5784) 117 mg/dL 70-110 TESTED AT [address] [address] POCT-GLUCOSE [id number] 07:51:00* Test Item Value Reference Range Comments POC-GLUCOSE METER (BEAKER) (test gess=5074) 114 mg/dL 70-110 TESTED AT [address] [address] [id number] 05:14:00* Test Item Value Reference Range Comments PHOSPHORUS (BEAKER) (test urps=638) 2.9 mg/dL 2.3-4.7 [id number] 05:14:00* Test Item Value Reference Range Comments MAGNESIUM (BEAKER) (test mywn=158) 1.7 mg/dL 1.6-2.6 COMPREHENSIVE METABOLIC [id number] 05:14:00* Test Item Value Reference Range Comments TOTAL PROTEIN (BEAKER) (test xrgr=513) 6.8 gm/dL 6.0-8.3 ALBUMIN (BEAKER) (test rihb=8103) 3.2 g/dL 3.5-5.0 ALKALINE PHOSPHATASE (BEAKER) (test iokd=762) 95 U/L 40-150 BILIRUBIN TOTAL (BEAKER) (test bqba=839) 0.7 mg/dL 0.2-1.2 SODIUM (BEAKER) (test mhzn=464) 147 meq/L 136-145 POTASSIUM (BEAKER) (test duex=151) 3.3 meq/L 3.5-5.1 CHLORIDE (BEAKER) (test hxjx=481) 110 meq/L 98-107 CO2 (BEAKER) (test yeeo=509) 30 meq/L 22-29 BLOOD UREA NITROGEN (BEAKER) (test ezsg=342) 17 mg/dL 7-21 CREATININE (BEAKER) (test yrya=674) 1.16 mg/dL 0.57-1.25 GLUCOSE RANDOM (BEAKER) (test ekdq=364) 110 mg/dL 70-105 CALCIUM (BEAKER) (test mdor=359) 9.0 mg/dL 8.4-10.2 AST (SGOT) (BEAKER) (test tnhi=609) 14 U/L 5-34 ALT (SGPT) (BEAKER) (test cwga=992) 9 U/L 6-55 EGFR (BEAKER) (test ycrw=9073) 65 mL/min/1.73 sq m ESTIMATED GFR IS NOT ACCURATE CREATININE CLEARANCE IN PREDICTING GLOMERULAR FILTRATION RATE. ESTIMATED GFR IS NOT APPLICABLE FOR DIALYSIS PATIENTS. POCT-GLUCOSE [id number] 21:25:00* Test Item Value Reference Range Comments POC-GLUCOSE METER (BEAKER) (test dszh=1129) 116 mg/dL 70-110 TESTED AT [facility] [address] [facility] [address] POCT-GLUCOSE [id number] 17:01:00* Test Item Value Reference Range Comments POC-GLUCOSE METER (BEAKER) (test zxll=4228) 123 mg/dL 70-110 TESTED AT [facility] [address] [facility] [address] B-TYPE NATRIURETIC FACTOR (BNP)2017-02-11 12:49:00* Test Item Value Reference Range Comments B-TYPE NATRIURETIC PEPTIDE (BEAKER) (test rnzk=872) 62 pg/mL 0-100 HEPATITIS B SURFACE [id number] 12:41:00* Test Item Value Reference Range Comments HEPATITIS B SURFACE ANTIBODY (BEAKER) (test kgks=135) < mIU/mL <8.0 HEPATITIS B SURFACE [id number] 12:38:00* Test Item Value Reference Range Comments HEPATITIS B SURFACE ANTIGEN (2) (BEAKER) (test fiit=6405) Nonreactive Nonreactive ALPHA FETOPROTEIN (AFP), TUMOR [id number] 12:38:00* Test Item Value Reference Range Comments ALPHA-FETOPROTEIN (BEAKER) (test bkic=7904) 3.5 ng/mL <10.0 Effective 06/14/2014: Reference Range ChangeNew: <10.0 Previous: 0.0-8.0 HEPATITIS B CORE ANTIBODY, [id number] 12:38:00* Test Item Value Reference Range Comments HEPATITIS B CORE TOTAL ANTIBODY (BEAKER) (test wjsr=747) Nonreactive Nonreactive HEPATITIS A ANTIBODY, [id number] 12:38:00* Test Item Value Reference Range Comments HEPATITIS A IGG ANTIBODY (BEAKER) (test pchi=6020) Nonreactive Nonreactive HEPATITIS C [id number] 12:38:00* Test Item Value Reference Range Comments HEPATITIS C ANTIBODY (BEAKER) (test oiry=470) Nonreactive Nonreactive POCT-GLUCOSE [id number] 12:33:00* Test Item Value Reference Range Comments POC-GLUCOSE METER (BEAKER) (test nhzt=2668) 131 mg/dL 70-110 TESTED AT [address] [address] CBC W/PLT COUNT & AUTO [id number] 12:20:00* Test Item Value Reference Range Comments WHITE BLOOD CELL COUNT (BEAKER) (test vykb=115) 8.1 K/ L 4.0-10.0 RED BLOOD CELL COUNT (BEAKER) (test hnhh=111) 3.57 M/ L 4.20-5.80 HEMOGLOBIN (BEAKER) (test nlfg=637) 12.0 GM/DL 13.0-16.8 HEMATOCRIT (BEAKER) (test ryrc=916) 37.4 % 40.0-50.0 MEAN CORPUSCULAR VOLUME (BEAKER) (test uykj=403) 105.0 fL 82.0-98.0 MEAN CORPUSCULAR HEMOGLOBIN (BEAKER) (test rjtc=097) 33.7 pg 27.0-33.0 MEAN CORPUSCULAR HEMOGLOBIN CONC (BEAKER) (test qivd=795) 32.2 GM/DL 32.0-36.0 RED CELL DISTRIBUTION WIDTH (BEAKER) (test krbc=412) 14.5 % 10.3-14.2 PLATELET COUNT (BEAKER) (test hdff=426) 195 K/CU MM 150-430 MEAN PLATELET VOLUME (BEAKER) (test ucag=588) 7.6 fL 6.5-10.5 NUCLEATED RED BLOOD CELLS (BEAKER) (test nhjb=360) 0 /100 WBC 0-0 NEUTROPHILS RELATIVE PERCENT (BEAKER) (test uqmh=875) 72 % LYMPHOCYTES RELATIVE PERCENT (BEAKER) (test emvu=991) 13 % MONOCYTES RELATIVE PERCENT (BEAKER) (test xukz=170) 12 % EOSINOPHILS RELATIVE PERCENT (BEAKER) (test akwr=378) 3 % BASOPHILS RELATIVE PERCENT (BEAKER) (test ckpx=327) 1 % NEUTROPHILS ABSOLUTE COUNT (BEAKER) (test vkjf=170) 5.86 K/ L 1.80-8.00 LYMPHOCYTES ABSOLUTE COUNT (BEAKER) (test emez=214) 1.06 K/ L 1.48-4.50 MONOCYTES ABSOLUTE COUNT (BEAKER) (test thrq=091) 0.95 K/ L 0.00-1.30 EOSINOPHILS ABSOLUTE COUNT (BEAKER) (test qolx=513) 0.23 K/ L 0.00-0.50 BASOPHILS ABSOLUTE COUNT (BEAKER) (test yymh=366) 0.04 K/ L 0.00-0.20 [id number] 12:17:00* Test Item Value Reference Range Comments PHOSPHORUS (BEAKER) (test ojag=262) 2.4 mg/dL 2.3-4.7 [id number] 12:17:00* Test Item Value Reference Range Comments MAGNESIUM (BEAKER) (test ahao=548) 1.7 mg/dL 1.6-2.6 COMPREHENSIVE METABOLIC [id number] 12:17:00* Test Item Value Reference Range Comments TOTAL PROTEIN (BEAKER) (test iigz=801) 7.3 gm/dL 6.0-8.3 ALBUMIN (BEAKER) (test tlkk=7654) 3.5 g/dL 3.5-5.0 ALKALINE PHOSPHATASE (BEAKER) (test riyo=772) 104 U/L 40-150 BILIRUBIN TOTAL (BEAKER) (test qyak=384) 0.9 mg/dL 0.2-1.2 SODIUM (BEAKER) (test fueh=703) 145 meq/L 136-145 POTASSIUM (BEAKER) (test guki=115) 3.5 meq/L 3.5-5.1 CHLORIDE (BEAKER) (test ifsa=146) 107 meq/L 98-107 CO2 (BEAKER) (test ybuk=796) 32 meq/L 22-29 BLOOD UREA NITROGEN (BEAKER) (test opmr=002) 15 mg/dL 7-21 CREATININE (BEAKER) (test kkfz=385) 1.22 mg/dL 0.57-1.25 GLUCOSE RANDOM (BEAKER) (test cbql=841) 125 mg/dL 70-105 CALCIUM (BEAKER) (test vzad=334) 9.4 mg/dL 8.4-10.2 AST (SGOT) (BEAKER) (test weqh=445) 17 U/L 5-34 ALT (SGPT) (BEAKER) (test tjai=437) 10 U/L 6-55 EGFR (BEAKER) (test xeuq=5586) 61 mL/min/1.73 sq m ESTIMATED GFR IS NOT ACCURATE CREATININE CLEARANCE IN PREDICTING GLOMERULAR FILTRATION RATE. ESTIMATED GFR IS NOT APPLICABLE FOR DIALYSIS PATIENTS. POCT-GLUCOSE [id number] 07:58:00* Test Item Value Reference Range Comments POC-GLUCOSE METER (BEAKER) (test vuxt=5105) 119 mg/dL 70-110 TESTED AT [place] [id number] [facility] [address] POCT-GLUCOSE [id number] 21:41:00* Test Item Value Reference Range Comments POC-GLUCOSE METER (BEAKER) (test drhe=1617) 115 mg/dL 70-110 TESTED AT [address] [address] POCT-GLUCOSE [id number] 17:30:00* Test Item Value Reference Range Comments POC-GLUCOSE METER (BEAKER) (test mpfh=0707) 115 mg/dL 70-110 TESTED AT [place] [address] [facility] [address] URINE [id number] 09:54:00* Test Item Value Reference Range Comments CULTURE (BEAKER) (test qymw=5670) No growth POCT-GLUCOSE [id number] 07:49:00* Test Item Value Reference Range Comments POC-GLUCOSE METER (BEAKER) (test flzt=2288) 122 mg/dL 70-110 TESTED AT [facility] [address] [facility] [address] [id number] 06:31:00* Test Item Value Reference Range Comments PHOSPHORUS (BEAKER) (test srlb=317) 3.4 mg/dL 2.3-4.7 [id number] 06:31:00* Test Item Value Reference Range Comments MAGNESIUM (BEAKER) (test vwan=111) 1.7 mg/dL 1.6-2.6 COMPREHENSIVE METABOLIC [id number] 06:31:00* Test Item Value Reference Range Comments TOTAL PROTEIN (BEAKER) (test uohg=883) 7.6 gm/dL 6.0-8.3 ALBUMIN (BEAKER) (test mhme=3812) 3.5 g/dL 3.5-5.0 ALKALINE PHOSPHATASE (BEAKER) (test ucvs=046) 110 U/L 40-150 BILIRUBIN TOTAL (BEAKER) (test aaok=308) 0.8 mg/dL 0.2-1.2 SODIUM (BEAKER) (test cisd=830) 141 meq/L 136-145 POTASSIUM (BEAKER) (test ryxq=465) 3.9 meq/L 3.5-5.1 CHLORIDE (BEAKER) (test qjjd=851) 109 meq/L 98-107 CO2 (BEAKER) (test qspq=001) 22 meq/L 22-29 BLOOD UREA NITROGEN (BEAKER) (test trah=877) 14 mg/dL 7-21 CREATININE (BEAKER) (test mqrc=260) 1.04 mg/dL 0.57-1.25 GLUCOSE RANDOM (BEAKER) (test qjnq=928) 113 mg/dL 70-105 CALCIUM (BEAKER) (test vpxd=027) 9.3 mg/dL 8.4-10.2 AST (SGOT) (BEAKER) (test lzmv=087) 18 U/L 5-34 ALT (SGPT) (BEAKER) (test yqmm=262) 10 U/L 6-55 EGFR (BEAKER) (test thve=1648) 74 mL/min/1.73 sq m ESTIMATED GFR IS NOT ACCURATE CREATININE CLEARANCE IN PREDICTING GLOMERULAR FILTRATION RATE. ESTIMATED GFR IS NOT APPLICABLE FOR DIALYSIS PATIENTS. POCT-GLUCOSE [id number] 21:29:00* Test Item Value Reference Range Comments POC-GLUCOSE METER (BEAKER) (test qfyg=9882) 106 mg/dL 70-110 TESTED AT [facility] [address] [facility] [address] POCT-GLUCOSE [id number] 09:35:00* Test Item Value Reference Range Comments POC-GLUCOSE METER (BEAKER) (test pygw=0199) 112 mg/dL 70-110 TESTED AT [facility] [address] [facility] [address] [id number] 06:29:00* Test Item Value Reference Range Comments PHOSPHORUS (BEAKER) (test cboy=548) 3.3 mg/dL 2.3-4.7 [id number] 06:29:00* Test Item Value Reference Range Comments MAGNESIUM (BEAKER) (test iqxz=483) 1.7 mg/dL 1.6-2.6 COMPREHENSIVE METABOLIC [id number] 06:29:00* Test Item Value Reference Range Comments TOTAL PROTEIN (BEAKER) (test uiab=834) 7.1 gm/dL 6.0-8.3 ALBUMIN (BEAKER) (test izny=6274) 3.4 g/dL 3.5-5.0 ALKALINE PHOSPHATASE (BEAKER) (test oxcb=484) 110 U/L 40-150 BILIRUBIN TOTAL (BEAKER) (test xtga=276) 0.6 mg/dL 0.2-1.2 SODIUM (BEAKER) (test yocg=294) 140 meq/L 136-145 POTASSIUM (BEAKER) (test lfwm=093) 3.5 meq/L 3.5-5.1 CHLORIDE (BEAKER) (test dznw=597) 112 meq/L 98-107 CO2 (BEAKER) (test agzw=135) 21 meq/L 22-29 BLOOD UREA NITROGEN (BEAKER) (test gapq=967) 14 mg/dL 7-21 CREATININE (BEAKER) (test qast=436) 0.95 mg/dL 0.57-1.25 GLUCOSE RANDOM (BEAKER) (test xmlk=774) 106 mg/dL 70-105 CALCIUM (BEAKER) (test wlge=052) 9.4 mg/dL 8.4-10.2 AST (SGOT) (BEAKER) (test xbkj=450) 21 U/L 5-34 ALT (SGPT) (BEAKER) (test letv=887) 12 U/L 6-55 EGFR (BEAKER) (test mgky=0512) 82 mL/min/1.73 sq m ESTIMATED GFR IS NOT ACCURATE CREATININE CLEARANCE IN PREDICTING GLOMERULAR FILTRATION RATE. ESTIMATED GFR IS NOT APPLICABLE FOR DIALYSIS PATIENTS. POCT-GLUCOSE [id number] 21:44:00* Test Item Value Reference Range Comments POC-GLUCOSE METER (BEAKER) (test nzyk=3504) 97 mg/dL 70-110 TESTED AT [address] [address] POCT-GLUCOSE [id number] 17:55:00* Test Item Value Reference Range Comments POC-GLUCOSE METER (BEAKER) (test zhtr=5194) 103 mg/dL 70-110 TESTED AT [address] [address] [id number] 14:13:00* Test Item Value Reference Range Comments LIPASE (BEAKER) (test tjhc=198) 17 U/L 8-78 POCT-GLUCOSE [id number] 12:47:00* Test Item Value Reference Range Comments POC-GLUCOSE METER (BEAKER) (test tdme=9601) 111 mg/dL 70-110 TESTED AT [address] [address] POCT-GLUCOSE [id number] 07:57:00* Test Item Value Reference Range Comments POC-GLUCOSE METER (BEAKER) (test juhi=3159) 124 mg/dL 70-110 TESTED AT [address] [address] [id number] 05:52:00* Test Item Value Reference Range Comments PHOSPHORUS (BEAKER) (test wyby=506) 2.7 mg/dL 2.3-4.7 [id number] 05:52:00* Test Item Value Reference Range Comments MAGNESIUM (BEAKER) (test vqeq=911) 1.7 mg/dL 1.6-2.6 COMPREHENSIVE METABOLIC [id number] 05:52:00* Test Item Value Reference Range Comments TOTAL PROTEIN (BEAKER) (test llgy=280) 6.9 gm/dL 6.0-8.3 ALBUMIN (BEAKER) (test pimi=9254) 3.2 g/dL 3.5-5.0 ALKALINE PHOSPHATASE (BEAKER) (test eawt=783) 95 U/L 40-150 BILIRUBIN TOTAL (BEAKER) (test afhz=438) 0.7 mg/dL 0.2-1.2 SODIUM (BEAKER) (test sdnd=369) 141 meq/L 136-145 POTASSIUM (BEAKER) (test fthw=008) 4.0 meq/L 3.5-5.1 CHLORIDE (BEAKER) (test gkdl=304) 110 meq/L 98-107 CO2 (BEAKER) (test jgay=147) 26 meq/L 22-29 BLOOD UREA NITROGEN (BEAKER) (test gddu=154) 15 mg/dL 7-21 CREATININE (BEAKER) (test bmhp=576) 1.11 mg/dL 0.57-1.25 GLUCOSE RANDOM (BEAKER) (test pdux=772) 102 mg/dL 70-105 CALCIUM (BEAKER) (test uypc=006) 8.9 mg/dL 8.4-10.2 AST (SGOT) (BEAKER) (test pevf=029) 21 U/L 5-34 ALT (SGPT) (BEAKER) (test furk=709) 10 U/L 6-55 EGFR (BEAKER) (test hjdo=2159) 68 mL/min/1.73 sq m ESTIMATED GFR IS NOT ACCURATE CREATININE CLEARANCE IN PREDICTING GLOMERULAR FILTRATION RATE. ESTIMATED GFR IS NOT APPLICABLE FOR DIALYSIS PATIENTS. CBC W/PLT COUNT & AUTO [id number] 05:43:00* Test Item Value Reference Range Comments WHITE BLOOD CELL COUNT (BEAKER) (test yasr=263) 8.2 K/ L 4.0-10.0 RED BLOOD CELL COUNT (BEAKER) (test qiuy=493) 3.41 M/ L 4.20-5.80 HEMOGLOBIN (BEAKER) (test mkxy=422) 11.6 GM/DL 13.0-16.8 HEMATOCRIT (BEAKER) (test gguu=648) 36.3 % 40.0-50.0 MEAN CORPUSCULAR VOLUME (BEAKER) (test ihoj=078) 107.0 fL 82.0-98.0 MEAN CORPUSCULAR HEMOGLOBIN (BEAKER) (test yjsq=798) 33.9 pg 27.0-33.0 MEAN CORPUSCULAR HEMOGLOBIN CONC (BEAKER) (test tpsl=125) 31.8 GM/DL 32.0-36.0 RED CELL DISTRIBUTION WIDTH (BEAKER) (test fggn=316) 14.7 % 10.3-14.2 PLATELET COUNT (BEAKER) (test ioyu=660) 169 K/CU MM 150-430 MEAN PLATELET VOLUME (BEAKER) (test ipjo=018) 7.5 fL 6.5-10.5 NUCLEATED RED BLOOD CELLS (BEAKER) (test noqy=492) 0 /100 WBC 0-0 NEUTROPHILS RELATIVE PERCENT (BEAKER) (test gduu=638) 68 % LYMPHOCYTES RELATIVE PERCENT (BEAKER) (test hsis=099) 16 % MONOCYTES RELATIVE PERCENT (BEAKER) (test tnhr=687) 11 % EOSINOPHILS RELATIVE PERCENT (BEAKER) (test totr=848) 4 % BASOPHILS RELATIVE PERCENT (BEAKER) (test jcby=790) 1 % NEUTROPHILS ABSOLUTE COUNT (BEAKER) (test sbbr=704) 5.58 K/ L 1.80-8.00 LYMPHOCYTES ABSOLUTE COUNT (BEAKER) (test uroz=889) 1.33 K/ L 1.48-4.50 MONOCYTES ABSOLUTE COUNT (BEAKER) (test oimp=230) 0.88 K/ L 0.00-1.30 EOSINOPHILS ABSOLUTE COUNT (BEAKER) (test vhqt=829) 0.34 K/ L 0.00-0.50 BASOPHILS ABSOLUTE COUNT (BEAKER) (test hhbx=590) 0.06 K/ L 0.00-0.20 0.00POCT-GLUCOSE [id number] 21:41:00* Test Item Value Reference Range Comments POC-GLUCOSE METER (BEAKER) (test imlr=0191) 104 mg/dL 70-110 TESTED AT [address] [address] POCT-GLUCOSE [id number] 17:44:00* Test Item Value Reference Range Comments POC-GLUCOSE METER (BEAKER) (test dbof=7089) 101 mg/dL 70-110 TESTED AT [address] [address] POCT-GLUCOSE [id number] 11:36:00* Test Item Value Reference Range Comments POC-GLUCOSE METER (BEAKER) (test ndad=0059) 112 mg/dL 70-110 TESTED AT [facility] [address] [facility] [address] URINE [id number] 09:21:00* Test Item Value Reference Range Comments CULTURE (BEAKER) (test bljo=8804) No growth POCT-GLUCOSE [id number] 07:33:00* Test Item Value Reference Range Comments POC-GLUCOSE METER (BEAKER) (test idtj=4424) 104 mg/dL 70-110 TESTED AT [facility] [address] [facility] [address] CBC W/PLT COUNT & AUTO [id number] 07:02:00* Test Item Value Reference Range Comments WHITE BLOOD CELL COUNT (BEAKER) (test yfwo=055) 7.3 K/ L 4.0-10.0 RED BLOOD CELL COUNT (BEAKER) (test lgpq=710) 3.25 M/ L 4.20-5.80 HEMOGLOBIN (BEAKER) (test dywa=943) 11.4 GM/DL 13.0-16.8 HEMATOCRIT (BEAKER) (test oqzd=135) 34.6 % 40.0-50.0 MEAN CORPUSCULAR VOLUME (BEAKER) (test ovgo=663) 107.0 fL 82.0-98.0 MEAN CORPUSCULAR HEMOGLOBIN (BEAKER) (test jcbp=173) 35.1 pg 27.0-33.0 MEAN CORPUSCULAR HEMOGLOBIN CONC (BEAKER) (test pcin=133) 32.9 GM/DL 32.0-36.0 RED CELL DISTRIBUTION WIDTH (BEAKER) (test inrl=996) 15.8 % 10.3-14.2 PLATELET COUNT (BEAKER) (test nwva=500) 159 K/CU MM 150-430 MEAN PLATELET VOLUME (BEAKER) (test ynuy=651) 7.9 fL 6.5-10.5 NUCLEATED RED BLOOD CELLS (BEAKER) (test msmu=572) 0 /100 WBC 0-0 NEUTROPHILS RELATIVE PERCENT (BEAKER) (test dfny=619) 67 % LYMPHOCYTES RELATIVE PERCENT (BEAKER) (test gvrx=979) 17 % MONOCYTES RELATIVE PERCENT (BEAKER) (test hbfy=368) 11 % EOSINOPHILS RELATIVE PERCENT (BEAKER) (test tiac=115) 4 % BASOPHILS RELATIVE PERCENT (BEAKER) (test amgm=032) 1 % NEUTROPHILS ABSOLUTE COUNT (BEAKER) (test xxjd=226) 4.89 K/ L 1.80-8.00 LYMPHOCYTES ABSOLUTE COUNT (BEAKER) (test sffw=792) 1.22 K/ L 1.48-4.50 MONOCYTES ABSOLUTE COUNT (BEAKER) (test exss=164) 0.80 K/ L 0.00-1.30 EOSINOPHILS ABSOLUTE COUNT (BEAKER) (test hlqi=799) 0.29 K/ L 0.00-0.50 BASOPHILS ABSOLUTE COUNT (BEAKER) (test ezcd=382) 0.07 K/ L 0.00-0.20 [id number] 06:05:00* Test Item Value Reference Range Comments PHOSPHORUS (BEAKER) (test otva=923) 2.4 mg/dL 2.3-4.7 [id number] 06:05:00* Test Item Value Reference Range Comments MAGNESIUM (BEAKER) (test yzrw=682) 1.9 mg/dL 1.6-2.6 COMPREHENSIVE METABOLIC [id number] 06:05:00* Test Item Value Reference Range Comments TOTAL PROTEIN (BEAKER) (test cypa=358) 6.9 gm/dL 6.0-8.3 ALBUMIN (BEAKER) (test glgw=9791) 3.2 g/dL 3.5-5.0 ALKALINE PHOSPHATASE (BEAKER) (test ykwi=794) 93 U/L 40-150 BILIRUBIN TOTAL (BEAKER) (test qtoj=575) 0.6 mg/dL 0.2-1.2 SODIUM (BEAKER) (test tqjs=583) 144 meq/L 136-145 POTASSIUM (BEAKER) (test uuag=450) 4.0 meq/L 3.5-5.1 CHLORIDE (BEAKER) (test iljh=820) 114 meq/L 98-107 CO2 (BEAKER) (test lbje=196) 21 meq/L 22-29 BLOOD UREA NITROGEN (BEAKER) (test rmpi=665) 17 mg/dL 7-21 CREATININE (BEAKER) (test xrfu=321) 1.15 mg/dL 0.57-1.25 GLUCOSE RANDOM (BEAKER) (test bsnh=031) 100 mg/dL 70-105 CALCIUM (BEAKER) (test sapz=137) 9.0 mg/dL 8.4-10.2 AST (SGOT) (BEAKER) (test qigy=554) 19 U/L 5-34 ALT (SGPT) (BEAKER) (test ozgo=856) 10 U/L 6-55 EGFR (BEAKER) (test awif=4995) 66 mL/min/1.73 sq m ESTIMATED GFR IS NOT ACCURATE CREATININE CLEARANCE IN PREDICTING GLOMERULAR FILTRATION RATE. ESTIMATED GFR IS NOT APPLICABLE FOR DIALYSIS PATIENTS. POCT-GLUCOSE [id number] 22:24:00* Test Item Value Reference Range Comments POC-GLUCOSE METER (BEAKER) (test jriu=4454) 117 mg/dL 70-110 TESTED AT [place] [id number] POCT-GLUCOSE [id number] 17:19:00* Test Item Value Reference Range Comments POC-GLUCOSE METER (BEAKER) (test skoy=3986) 117 mg/dL 70-110 TESTED AT [address] [address] POCT-GLUCOSE [id number] 11:48:00* Test Item Value Reference Range Comments POC-GLUCOSE METER (BEAKER) (test hotr=9353) 117 mg/dL 70-110 TESTED AT [address] [address] CBC W/PLT COUNT & AUTO [id number] 10:07:00* Test Item Value Reference Range Comments WHITE BLOOD CELL COUNT (BEAKER) (test obpo=611) 7.2 K/ L 4.0-10.0 RED BLOOD CELL COUNT (BEAKER) (test zyuj=490) 3.26 M/ L 4.20-5.80 HEMOGLOBIN (BEAKER) (test krjx=958) 11.1 GM/DL 13.0-16.8 HEMATOCRIT (BEAKER) (test lqlb=821) 35.2 % 40.0-50.0 MEAN CORPUSCULAR VOLUME (BEAKER) (test opsz=436) 108.0 fL 82.0-98.0 MEAN CORPUSCULAR HEMOGLOBIN (BEAKER) (test drif=841) 34.0 pg 27.0-33.0 MEAN CORPUSCULAR HEMOGLOBIN CONC (BEAKER) (test eoub=970) 31.5 GM/DL 32.0-36.0 RED CELL DISTRIBUTION WIDTH (BEAKER) (test awfr=198) 14.7 % 10.3-14.2 PLATELET COUNT (BEAKER) (test fahs=038) 145 K/CU MM 150-430 MEAN PLATELET VOLUME (BEAKER) (test btzs=217) 7.8 fL 6.5-10.5 NUCLEATED RED BLOOD CELLS (BEAKER) (test xjch=073) 0 /100 WBC 0-0 NEUTROPHILS RELATIVE PERCENT (BEAKER) (test orgx=586) 69 % LYMPHOCYTES RELATIVE PERCENT (BEAKER) (test mmok=688) 15 % MONOCYTES RELATIVE PERCENT (BEAKER) (test lbva=867) 11 % EOSINOPHILS RELATIVE PERCENT (BEAKER) (test cnhs=136) 5 % BASOPHILS RELATIVE PERCENT (BEAKER) (test vroa=581) 1 % NEUTROPHILS ABSOLUTE COUNT (BEAKER) (test rpur=567) 4.96 K/ L 1.80-8.00 LYMPHOCYTES ABSOLUTE COUNT (BEAKER) (test fuus=600) 1.07 K/ L 1.48-4.50 MONOCYTES ABSOLUTE COUNT (BEAKER) (test xdsj=314) 0.77 K/ L 0.00-1.30 EOSINOPHILS ABSOLUTE COUNT (BEAKER) (test ggxj=009) 0.35 K/ L 0.00-0.50 BASOPHILS ABSOLUTE COUNT (BEAKER) (test ymud=531) 0.05 K/ L 0.00-0.20 0.00WOUND CULTURE + GRAM [id number] 09:32:00* Test Item Value Reference Range Comments CULTURE (BEAKER) (test cmeu=7735) STAPHYLOCOCCUS AUREUS 2+ Staphylococcus aureus Ampicillin (test code=26) Ciprofloxacin (test code=7) Clindamycin (test code=10) Daptomycin (test code=59) Erythromycin (test code=4) Gentamicin (test code=18) Gentamicin High Level Synergy (test ecck=422) Levofloxacin (test code=22) Linezolid (test code=40) Moxifloxacin (test code=36) Nitrofurantoin (test code=23) Oxacillin (test code=14) Rifampin (test code=43) Streptomycin High Level Synergy (test bqmo=926) Tetracycline (test code=2) Tigecycline (test vuhy=608) Trimethoprim + Sulfamethoxazole (test code=47) Vancomycin (test code=13) CULTURE (BEAKER) (test hkdb=7710) 2 out of 3 media Fusarium species GRAM STAIN RESULT (BEAKER) (test ipgg=9601) <1+ WBCs GRAM STAIN RESULT (BEAKER) (test rnac=628239) No organisms seen POCT-GLUCOSE [id number] 07:42:00* Test Item Value Reference Range Comments POC-GLUCOSE METER (BEAKER) (test ilbv=8838) 113 mg/dL 70-110 TESTED AT [facility] [address] [facility] [address] [id number] 07:10:00* Test Item Value Reference Range Comments PHOSPHORUS (BEAKER) (test zfdf=262) 2.5 mg/dL 2.3-4.7 [id number] 07:10:00* Test Item Value Reference Range Comments MAGNESIUM (BEAKER) (test lruq=867) 1.9 mg/dL 1.6-2.6 COMPREHENSIVE METABOLIC [id number] 07:10:00* Test Item Value Reference Range Comments TOTAL PROTEIN (BEAKER) (test zgey=565) 6.7 gm/dL 6.0-8.3 ALBUMIN (BEAKER) (test focp=7934) 3.0 g/dL 3.5-5.0 ALKALINE PHOSPHATASE (BEAKER) (test cklu=903) 89 U/L 40-150 BILIRUBIN TOTAL (BEAKER) (test zoka=533) 0.7 mg/dL 0.2-1.2 SODIUM (BEAKER) (test ejkd=475) 144 meq/L 136-145 POTASSIUM (BEAKER) (test xsjr=414) 3.6 meq/L 3.5-5.1 CHLORIDE (BEAKER) (test drru=040) 111 meq/L 98-107 CO2 (BEAKER) (test qfuc=562) 29 meq/L 22-29 BLOOD UREA NITROGEN (BEAKER) (test nzth=066) 18 mg/dL 7-21 CREATININE (BEAKER) (test ufoe=998) 1.23 mg/dL 0.57-1.25 GLUCOSE RANDOM (BEAKER) (test tmzp=406) 110 mg/dL 70-105 CALCIUM (BEAKER) (test rprh=644) 8.8 mg/dL 8.4-10.2 AST (SGOT) (BEAKER) (test ausm=092) 19 U/L 5-34 ALT (SGPT) (BEAKER) (test xnkt=046) 10 U/L 6-55 EGFR (BEAKER) (test vbnj=1453) 61 mL/min/1.73 sq m ESTIMATED GFR IS NOT ACCURATE CREATININE CLEARANCE IN PREDICTING GLOMERULAR FILTRATION RATE. ESTIMATED GFR IS NOT APPLICABLE FOR DIALYSIS PATIENTS. POCT-GLUCOSE [id number] 21:15:00* Test Item Value Reference Range Comments POC-GLUCOSE METER (BEAKER) (test olrv=4910) 128 mg/dL 70-110 TESTED AT [address] [address] POCT-GLUCOSE [id number] 16:47:00* Test Item Value Reference Range Comments POC-GLUCOSE METER (BEAKER) (test vpbn=8603) 105 mg/dL 70-110 TESTED AT [address] [address] POCT-GLUCOSE [id number] 10:46:00* Test Item Value Reference Range Comments POC-GLUCOSE METER (BEAKER) (test wsao=9190) 110 mg/dL 70-110 TESTED AT [address] [address] URINE [id number] 10:20:00* Test Item Value Reference Range Comments CULTURE (BEAKER) (test rdql=2411) No growth CBC W/PLT COUNT & AUTO [id number] 05:46:00* Test Item Value Reference Range Comments WHITE BLOOD CELL COUNT (BEAKER) (test fkyl=892) 10.1 K/ L 4.0-10.0 RED BLOOD CELL COUNT (BEAKER) (test tlut=028) 3.09 M/ L 4.20-5.80 HEMOGLOBIN (BEAKER) (test dflx=125) 10.7 GM/DL 13.0-16.8 HEMATOCRIT (BEAKER) (test cnmt=480) 32.7 % 40.0-50.0 MEAN CORPUSCULAR VOLUME (BEAKER) (test ctdx=727) 106.0 fL 82.0-98.0 MEAN CORPUSCULAR HEMOGLOBIN (BEAKER) (test txcr=262) 34.5 pg 27.0-33.0 MEAN CORPUSCULAR HEMOGLOBIN CONC (BEAKER) (test ohxs=714) 32.6 GM/DL 32.0-36.0 RED CELL DISTRIBUTION WIDTH (BEAKER) (test mssj=235) 14.3 % 10.3-14.2 PLATELET COUNT (BEAKER) (test utbj=128) 146 K/CU MM 150-430 MEAN PLATELET VOLUME (BEAKER) (test dtkh=754) 7.6 fL 6.5-10.5 NUCLEATED RED BLOOD CELLS (BEAKER) (test pdqt=518) 0 /100 WBC 0-0 NEUTROPHILS RELATIVE PERCENT (BEAKER) (test nuia=045) 74 % LYMPHOCYTES RELATIVE PERCENT (BEAKER) (test wjgv=578) 12 % MONOCYTES RELATIVE PERCENT (BEAKER) (test tcva=940) 11 % EOSINOPHILS RELATIVE PERCENT (BEAKER) (test vcir=066) 2 % BASOPHILS RELATIVE PERCENT (BEAKER) (test eeao=590) 1 % NEUTROPHILS ABSOLUTE COUNT (BEAKER) (test navd=169) 7.53 K/ L 1.80-8.00 LYMPHOCYTES ABSOLUTE COUNT (BEAKER) (test xgac=542) 1.18 K/ L 1.48-4.50 MONOCYTES ABSOLUTE COUNT (BEAKER) (test rqop=942) 1.15 K/ L 0.00-1.30 EOSINOPHILS ABSOLUTE COUNT (BEAKER) (test rfsm=826) 0.18 K/ L 0.00-0.50 BASOPHILS ABSOLUTE COUNT (BEAKER) (test lyfu=535) 0.10 K/ L 0.00-0.20 [id number] 05:30:00* Test Item Value Reference Range Comments PHOSPHORUS (BEAKER) (test zqqr=024) 2.8 mg/dL 2.3-4.7 [id number] 05:30:00* Test Item Value Reference Range Comments MAGNESIUM (BEAKER) (test etlr=687) 1.8 mg/dL 1.6-2.6 COMPREHENSIVE METABOLIC [id number] 05:30:00* Test Item Value Reference Range Comments TOTAL PROTEIN (BEAKER) (test uwuj=680) 6.7 gm/dL 6.0-8.3 ALBUMIN (BEAKER) (test xjyj=4117) 3.1 g/dL 3.5-5.0 ALKALINE PHOSPHATASE (BEAKER) (test tgfc=098) 87 U/L 40-150 BILIRUBIN TOTAL (BEAKER) (test rgze=134) 0.8 mg/dL 0.2-1.2 SODIUM (BEAKER) (test cjda=048) 142 meq/L 136-145 POTASSIUM (BEAKER) (test rcux=441) 3.3 meq/L 3.5-5.1 CHLORIDE (BEAKER) (test rhuo=887) 108 meq/L 98-107 CO2 (BEAKER) (test vwmo=655) 27 meq/L 22-29 BLOOD UREA NITROGEN (BEAKER) (test idot=399) 21 mg/dL 7-21 CREATININE (BEAKER) (test smrh=119) 1.24 mg/dL 0.57-1.25 GLUCOSE RANDOM (BEAKER) (test dpvj=331) 122 mg/dL 70-105 CALCIUM (BEAKER) (test immc=069) 8.4 mg/dL 8.4-10.2 AST (SGOT) (BEAKER) (test kvep=943) 15 U/L 5-34 ALT (SGPT) (BEAKER) (test pjrx=788) 12 U/L 6-55 EGFR (BEAKER) (test hheq=7858) 60 mL/min/1.73 sq m ESTIMATED GFR IS NOT ACCURATE CREATININE CLEARANCE IN PREDICTING GLOMERULAR FILTRATION RATE. ESTIMATED GFR IS NOT APPLICABLE FOR DIALYSIS PATIENTS. POCT-GLUCOSE [id number] 21:30:00* Test Item Value Reference Range Comments POC-GLUCOSE METER (BEAKER) (test zivh=6206) 142 mg/dL 70-110 TESTED AT [address] [address] HEMOGLOBIN AND [id number] 18:07:00* Test Item Value Reference Range Comments HEMOGLOBIN (BEAKER) (test tydc=512) 11.3 GM/DL 13.0-16.8 HEMATOCRIT (BEAKER) (test zfji=701) 36.2 % 40.0-50.0 CREATINE KINASE (CK)2017-02-04 17:26:00* Test Item Value Reference Range Comments CREATINE KINASE TOTAL (BEAKER) (test kahl=876) 11 U/L 29-200 POCT-GLUCOSE [id number] 17:20:00* Test Item Value Reference Range Comments POC-GLUCOSE METER (BEAKER) (test fbyy=1035) 177 mg/dL 70-110 TESTED AT [address] [address] POCT-GLUCOSE [id number] 14:22:00* Test Item Value Reference Range Comments POC-GLUCOSE METER (BEAKER) (test nmmf=0010) 100 mg/dL 70-110 TESTED AT [facility] [address] [facility] [address] EOSINOPHIL SMEAR, [id number] 11:26:00* Test Item Value Reference Range Comments EOSINOPHIL SMEAR, URINE (BEAKER) (test uwqk=0097) No EOS seen No EOS seen SODIUM, RANDOM [id number] 10:36:00* Test Item Value Reference Range Comments SODIUM URINE (BEAKER) (test bzpv=140) < meq/L Reference Range: No NormalsCREATININE, RANDOM [id number] 10:29:00* Test Item Value Reference Range Comments CREATININE URINE (BEAKER) (test mclr=969) 75.2 mg/dL Reference Range: No NormalsOSMOLALITY, [id number] 10:26:00* Test Item Value Reference Range Comments OSMOLALITY URINE (BEAKER) (test jhch=528) 410 mOsm/kg 40-1400 SURGICALLY OBTAINED CULTURE + GRAM [id number] 09:11:00* Test Item Value Reference Range Comments CULTURE (BEAKER) (test wyrq=7756) <1+ Same organism has been isolated from cultures(s) of the same body site and collection date. Repeat identification and susceptibility testing performed only after consultation with the clinical microbiology laboratory.Refer to previous culture ofStaphylococcus aureus GRAM STAIN RESULT (BEAKER) (test ykch=4969) No WBCs GRAM STAIN RESULT (BEAKER) (test vloj=049640) No organisms seen CBC W/PLT COUNT & AUTO [id number] 07:53:00* Test Item Value Reference Range Comments WHITE BLOOD CELL COUNT (BEAKER) (test cjtm=608) 12.3 K/ L 4.0-10.0 RED BLOOD CELL COUNT (BEAKER) (test dkil=573) 3.33 M/ L 4.20-5.80 HEMOGLOBIN (BEAKER) (test sayp=187) 11.7 GM/DL 13.0-16.8 HEMATOCRIT (BEAKER) (test getq=393) 35.4 % 40.0-50.0 MEAN CORPUSCULAR VOLUME (BEAKER) (test injz=115) 106.0 fL 82.0-98.0 MEAN CORPUSCULAR HEMOGLOBIN (BEAKER) (test jtxs=802) 35.1 pg 27.0-33.0 MEAN CORPUSCULAR HEMOGLOBIN CONC (BEAKER) (test fbsl=118) 33.1 GM/DL 32.0-36.0 RED CELL DISTRIBUTION WIDTH (BEAKER) (test cwjq=973) 15.8 % 10.3-14.2 PLATELET COUNT (BEAKER) (test wctk=557) 150 K/CU MM 150-430 MEAN PLATELET VOLUME (BEAKER) (test dzsx=844) 7.5 fL 6.5-10.5 NUCLEATED RED BLOOD CELLS (BEAKER) (test njev=320) 0 /100 WBC 0-0 NEUTROPHILS RELATIVE PERCENT (BEAKER) (test ubat=113) 82 % LYMPHOCYTES RELATIVE PERCENT (BEAKER) (test ksjp=496) 8 % MONOCYTES RELATIVE PERCENT (BEAKER) (test ykwa=366) 8 % EOSINOPHILS RELATIVE PERCENT (BEAKER) (test yijn=535) 1 % BASOPHILS RELATIVE PERCENT (BEAKER) (test icfv=683) 0 % NEUTROPHILS ABSOLUTE COUNT (BEAKER) (test qcgb=972) 10.10 K/ L 1.80-8.00 LYMPHOCYTES ABSOLUTE COUNT (BEAKER) (test uion=866) 0.99 K/ L 1.48-4.50 MONOCYTES ABSOLUTE COUNT (BEAKER) (test zrsx=906) 1.01 K/ L 0.00-1.30 EOSINOPHILS ABSOLUTE COUNT (BEAKER) (test atsy=989) 0.14 K/ L 0.00-0.50 BASOPHILS ABSOLUTE COUNT (BEAKER) (test pqkc=016) 0.04 K/ L 0.00-0.20 0.00POCT-GLUCOSE [id number] 07:23:00* Test Item Value Reference Range Comments POC-GLUCOSE METER (BEAKER) (test wcnm=3832) 108 mg/dL 70-110 TESTED AT [facility] [address] [facility] [address] [id number] 07:09:00* Test Item Value Reference Range Comments PHOSPHORUS (BEAKER) (test gnxj=603) 3.8 mg/dL 2.3-4.7 [id number] 07:09:00* Test Item Value Reference Range Comments MAGNESIUM (BEAKER) (test xbuf=118) 1.9 mg/dL 1.6-2.6 COMPREHENSIVE METABOLIC [id number] 07:09:00* Test Item Value Reference Range Comments TOTAL PROTEIN (BEAKER) (test xggk=608) 6.9 gm/dL 6.0-8.3 ALBUMIN (BEAKER) (test txyr=1317) 3.2 g/dL 3.5-5.0 ALKALINE PHOSPHATASE (BEAKER) (test jezi=590) 100 U/L 40-150 BILIRUBIN TOTAL (BEAKER) (test keaa=086) 1.1 mg/dL 0.2-1.2 SODIUM (BEAKER) (test smpv=191) 142 meq/L 136-145 POTASSIUM (BEAKER) (test zkby=783) 3.7 meq/L 3.5-5.1 CHLORIDE (BEAKER) (test kops=702) 105 meq/L 98-107 CO2 (BEAKER) (test jcxc=691) 29 meq/L 22-29 BLOOD UREA NITROGEN (BEAKER) (test dhpd=712) 27 mg/dL 7-21 CREATININE (BEAKER) (test mgyl=409) 1.53 mg/dL 0.57-1.25 GLUCOSE RANDOM (BEAKER) (test tneg=066) 104 mg/dL 70-105 CALCIUM (BEAKER) (test vgvz=627) 8.9 mg/dL 8.4-10.2 AST (SGOT) (BEAKER) (test yufv=841) 21 U/L 5-34 ALT (SGPT) (BEAKER) (test dtzb=943) 14 U/L 6-55 EGFR (BEAKER) (test hsct=7101) 47 mL/min/1.73 sq m ESTIMATED GFR IS NOT ACCURATE CREATININE CLEARANCE IN PREDICTING GLOMERULAR FILTRATION RATE. ESTIMATED GFR IS NOT APPLICABLE FOR DIALYSIS PATIENTS. POCT-GLUCOSE [id number] 21:12:00* Test Item Value Reference Range Comments POC-GLUCOSE METER (BEAKER) (test mvlz=5506) 107 mg/dL 70-110 TESTED AT [facility] [address] [facility] [address] POCT-GLUCOSE [id number] 16:59:00* Test Item Value Reference Range Comments POC-GLUCOSE METER (BEAKER) (test gwkk=6940) 147 mg/dL 70-110 TESTED AT [facility] [address] [facility] [address] URINALYSIS W/ [id number] 14:38:00* Test Item Value Reference Range Comments COLOR (BEAKER) (test obgt=295) Dark Red CLARITY (BEAKER) (test uhui=809) Cloudy SPECIFIC GRAVITY UA (BEAKER) (test zncl=773) 1.015 1.001-1.035 PH UA (BEAKER) (test rneb=863) 5.5 5.0-8.0 PROTEIN UA (BEAKER) (test sufp=320) 100 mg/dL Negative GLUCOSE UA (BEAKER) (test ddsw=583) Negative Negative KETONES UA (BEAKER) (test pepr=377) Negative Negative BILIRUBIN UA (BEAKER) (test rkua=024) Negative Negative BLOOD UA (BEAKER) (test ivfu=794) Large Negative NITRITE UA (BEAKER) (test yfro=638) Negative Negative LEUKOCYTE ESTERASE UA (BEAKER) (test dgni=420) Large Negative UROBILINOGEN UA (BEAKER) (test cefa=659) 0.2 mg/dL 0.2-1.0 RBC UA (BEAKER) (test knxg=094) 2515 /HPF WBC UA (BEAKER) (test apbc=660) 4485 /HPF SOURCE(BEAKER) (test zxzd=4970) Urine, Miranda POCT-GLUCOSE [id number] 09:47:00* Test Item Value Reference Range Comments POC-GLUCOSE METER (BEAKER) (test bqsi=8121) 112 mg/dL 70-110 TESTED AT [facility] [address] [facility] [address] POCT-GLUCOSE [id number] 06:37:00* Test Item Value Reference Range Comments POC-GLUCOSE METER (BEAKER) (test xvrs=6722) 101 mg/dL 70-110 TESTED AT [facility] [address] [facility] [address] [id number] 05:46:00* Test Item Value Reference Range Comments PHOSPHORUS (BEAKER) (test vaxz=802) 3.2 mg/dL 2.3-4.7 [id number] 05:46:00* Test Item Value Reference Range Comments MAGNESIUM (BEAKER) (test ftil=039) 1.8 mg/dL 1.6-2.6 COMPREHENSIVE METABOLIC [id number] 05:46:00* Test Item Value Reference Range Comments TOTAL PROTEIN (BEAKER) (test owed=290) 7.5 gm/dL 6.0-8.3 ALBUMIN (BEAKER) (test vuhh=6183) 3.4 g/dL 3.5-5.0 ALKALINE PHOSPHATASE (BEAKER) (test bxoq=185) 104 U/L 40-150 BILIRUBIN TOTAL (BEAKER) (test jspx=779) 1.6 mg/dL 0.2-1.2 SODIUM (BEAKER) (test altd=333) 140 meq/L 136-145 POTASSIUM (BEAKER) (test rokz=137) 3.6 meq/L 3.5-5.1 CHLORIDE (BEAKER) (test nqmf=363) 104 meq/L 98-107 CO2 (BEAKER) (test xejp=767) 27 meq/L 22-29 BLOOD UREA NITROGEN (BEAKER) (test edfj=549) 24 mg/dL 7-21 CREATININE (BEAKER) (test pqnq=409) 1.25 mg/dL 0.57-1.25 GLUCOSE RANDOM (BEAKER) (test hhsf=807) 105 mg/dL 70-105 CALCIUM (BEAKER) (test wjxh=265) 9.5 mg/dL 8.4-10.2 AST (SGOT) (BEAKER) (test yehb=937) 29 U/L 5-34 ALT (SGPT) (BEAKER) (test kqbl=904) 18 U/L 6-55 EGFR (BEAKER) (test kljr=8841) 60 mL/min/1.73 sq m ESTIMATED GFR IS NOT ACCURATE CREATININE CLEARANCE IN PREDICTING GLOMERULAR FILTRATION RATE. ESTIMATED GFR IS NOT APPLICABLE FOR DIALYSIS PATIENTS. CBC W/PLT COUNT & AUTO [id number] 05:23:00* Test Item Value Reference Range Comments WHITE BLOOD CELL COUNT (BEAKER) (test fzoi=706) 13.1 K/ L 4.0-10.0 RED BLOOD CELL COUNT (BEAKER) (test uvki=038) 3.75 M/ L 4.20-5.80 HEMOGLOBIN (BEAKER) (test azpj=182) 12.8 GM/DL 13.0-16.8 HEMATOCRIT (BEAKER) (test fzvl=460) 40.1 % 40.0-50.0 MEAN CORPUSCULAR VOLUME (BEAKER) (test btmc=277) 107.0 fL 82.0-98.0 MEAN CORPUSCULAR HEMOGLOBIN (BEAKER) (test hefw=888) 34.0 pg 27.0-33.0 MEAN CORPUSCULAR HEMOGLOBIN CONC (BEAKER) (test zkoa=235) 31.8 GM/DL 32.0-36.0 RED CELL DISTRIBUTION WIDTH (BEAKER) (test keob=867) 14.6 % 10.3-14.2 PLATELET COUNT (BEAKER) (test bgiw=008) 176 K/CU MM 150-430 MEAN PLATELET VOLUME (BEAKER) (test fmij=364) 7.1 fL 6.5-10.5 NUCLEATED RED BLOOD CELLS (BEAKER) (test rxwm=836) 0 /100 WBC 0-0 NEUTROPHILS RELATIVE PERCENT (BEAKER) (test keaj=808) 82 % LYMPHOCYTES RELATIVE PERCENT (BEAKER) (test vwxj=204) 9 % MONOCYTES RELATIVE PERCENT (BEAKER) (test jzoj=346) 8 % EOSINOPHILS RELATIVE PERCENT (BEAKER) (test myfa=443) 1 % BASOPHILS RELATIVE PERCENT (BEAKER) (test iiri=047) 1 % NEUTROPHILS ABSOLUTE COUNT (BEAKER) (test vrfv=627) 10.70 K/ L 1.80-8.00 LYMPHOCYTES ABSOLUTE COUNT (BEAKER) (test kmdb=457) 1.13 K/ L 1.48-4.50 MONOCYTES ABSOLUTE COUNT (BEAKER) (test dysg=840) 1.01 K/ L 0.00-1.30 EOSINOPHILS ABSOLUTE COUNT (BEAKER) (test yawa=637) 0.10 K/ L 0.00-0.50 BASOPHILS ABSOLUTE COUNT (BEAKER) (test nrkx=650) 0.13 K/ L 0.00-0.20 0.00POCT-GLUCOSE [id number] 21:09:00* Test Item Value Reference Range Comments POC-GLUCOSE METER (BEAKER) (test xhgs=1834) 101 mg/dL 70-110 TESTED AT [facility] [address] [facility] [address] POCT-GLUCOSE [id number] 17:50:00* Test Item Value Reference Range Comments POC-GLUCOSE METER (BEAKER) (test yxne=7685) 103 mg/dL 70-110 TESTED AT [place] [id number] [facility] [address] POCT-GLUCOSE [id number] 12:30:00* Test Item Value Reference Range Comments POC-GLUCOSE METER (BEAKER) (test aapr=1048) 104 mg/dL 70-110 TESTED AT [facility] [address] [facility] [address] VANCOMYCIN LEVEL, [id number] 10:56:00* Test Item Value Reference Range Comments VANCOMYCIN TROUGH (BEAKER) (test cqcv=360) 21.7 ug/mL 10.0-20.0 POCT-GLUCOSE [id number] 07:32:00* Test Item Value Reference Range Comments POC-GLUCOSE METER (BEAKER) (test tjcn=9536) 107 mg/dL 70-110 TESTED AT [facility] [address] [facility] [address] CBC W/PLT COUNT & AUTO [id number] 06:19:00* Test Item Value Reference Range Comments WHITE BLOOD CELL COUNT (BEAKER) (test fmbb=483) 9.8 K/ L 4.0-10.0 RED BLOOD CELL COUNT (BEAKER) (test qjkj=481) 3.87 M/ L 4.20-5.80 HEMOGLOBIN (BEAKER) (test bhog=312) 12.7 GM/DL 13.0-16.8 HEMATOCRIT (BEAKER) (test dtie=743) 40.8 % 40.0-50.0 MEAN CORPUSCULAR VOLUME (BEAKER) (test bdxo=553) 105.0 fL 82.0-98.0 MEAN CORPUSCULAR HEMOGLOBIN (BEAKER) (test ccxq=922) 32.9 pg 27.0-33.0 MEAN CORPUSCULAR HEMOGLOBIN CONC (BEAKER) (test vlyn=500) 31.2 GM/DL 32.0-36.0 RED CELL DISTRIBUTION WIDTH (BEAKER) (test zhqc=414) 15.5 % 10.3-14.2 PLATELET COUNT (BEAKER) (test wnxl=766) 175 K/CU MM 150-430 MEAN PLATELET VOLUME (BEAKER) (test yvxn=063) 7.1 fL 6.5-10.5 NUCLEATED RED BLOOD CELLS (BEAKER) (test olnl=201) 0 /100 WBC 0-0 NEUTROPHILS RELATIVE PERCENT (BEAKER) (test ntdr=463) 77 % LYMPHOCYTES RELATIVE PERCENT (BEAKER) (test qsgm=903) 12 % MONOCYTES RELATIVE PERCENT (BEAKER) (test cxlr=833) 9 % EOSINOPHILS RELATIVE PERCENT (BEAKER) (test ayss=824) 1 % BASOPHILS RELATIVE PERCENT (BEAKER) (test mfja=317) 1 % NEUTROPHILS ABSOLUTE COUNT (BEAKER) (test dkvx=099) 7.52 K/ L 1.80-8.00 LYMPHOCYTES ABSOLUTE COUNT (BEAKER) (test apzv=894) 1.21 K/ L 1.48-4.50 MONOCYTES ABSOLUTE COUNT (BEAKER) (test bhul=441) 0.83 K/ L 0.00-1.30 EOSINOPHILS ABSOLUTE COUNT (BEAKER) (test shfl=610) 0.11 K/ L 0.00-0.50 BASOPHILS ABSOLUTE COUNT (BEAKER) (test acpw=571) 0.08 K/ L 0.00-0.20 [id number] 05:36:00* Test Item Value Reference Range Comments PHOSPHORUS (BEAKER) (test sote=910) 2.5 mg/dL 2.3-4.7 [id number] 05:36:00* Test Item Value Reference Range Comments MAGNESIUM (BEAKER) (test fnli=436) 1.8 mg/dL 1.6-2.6 COMPREHENSIVE METABOLIC [id number] 05:36:00* Test Item Value Reference Range Comments TOTAL PROTEIN (BEAKER) (test oimy=927) 7.7 gm/dL 6.0-8.3 ALBUMIN (BEAKER) (test ffwx=3720) 3.5 g/dL 3.5-5.0 ALKALINE PHOSPHATASE (BEAKER) (test qzsu=133) 102 U/L 40-150 BILIRUBIN TOTAL (BEAKER) (test naav=220) 1.5 mg/dL 0.2-1.2 SODIUM (BEAKER) (test ulva=057) 142 meq/L 136-145 POTASSIUM (BEAKER) (test oxsr=232) 3.4 meq/L 3.5-5.1 CHLORIDE (BEAKER) (test vwac=983) 103 meq/L 98-107 CO2 (BEAKER) (test gzny=511) 29 meq/L 22-29 BLOOD UREA NITROGEN (BEAKER) (test bvfu=287) 21 mg/dL 7-21 CREATININE (BEAKER) (test zelz=221) 1.20 mg/dL 0.57-1.25 GLUCOSE RANDOM (BEAKER) (test huxh=469) 98 mg/dL 70-105 CALCIUM (BEAKER) (test knmp=771) 9.3 mg/dL 8.4-10.2 AST (SGOT) (BEAKER) (test kxvp=843) 24 U/L 5-34 ALT (SGPT) (BEAKER) (test zorn=024) 18 U/L 6-55 EGFR (BEAKER) (test fkeo=1567) 62 mL/min/1.73 sq m ESTIMATED GFR IS NOT ACCURATE CREATININE CLEARANCE IN PREDICTING GLOMERULAR FILTRATION RATE. ESTIMATED GFR IS NOT APPLICABLE FOR DIALYSIS PATIENTS. POCT-GLUCOSE [id number] 20:36:00* Test Item Value Reference Range Comments POC-GLUCOSE METER (ADDISON) (test vsab=7797) 111 mg/dL 70-110 TESTED AT [address] [address] POCT-GLUCOSE [id number] 16:56:00* Test Item Value Reference Range Comments POC-GLUCOSE METER (BEEDU) (test odoa=7472) 120 mg/dL 70-110 TESTED AT [address] [address] POCT-GLUCOSE [id number] 12:19:00* Test Item Value Reference Range Comments POC-GLUCOSE METER (ADDISON) (test myzo=2043) 108 mg/dL 70-110 TESTED AT [address] [address] SEDIMENTATION [id number] 10:37:00* Test Item Value Reference Range Comments SEDIMENTATION RATE, ERYTHROCYTE (ADDISON) (test utms=100) 79 mm/HR 0-20 VANCOMYCIN LEVEL, [id number] 09:47:00* Test Item Value Reference Range Comments VANCOMYCIN TROUGH (ADDISON) (test frxh=898) 25.7 ug/mL 10.0-20.0 POCT-GLUCOSE [id number] 08:23:00* Test Item Value Reference Range Comments POC-GLUCOSE METER (ADDISON) (test bwvj=9985) 113 mg/dL 70-110 TESTED AT [address] [address] CBC W/PLT COUNT & AUTO [id number] 06:52:00* Test Item Value Reference Range Comments WHITE BLOOD CELL COUNT (ADDISON) (test advb=992) 8.1 K/ L 4.0-10.0 RED BLOOD CELL COUNT (BEAKER) (test zxgn=005) 3.69 M/ L 4.20-5.80 HEMOGLOBIN (BEAKER) (test ivdn=002) 11.9 GM/DL 13.0-16.8 HEMATOCRIT (BEAKER) (test jacf=595) 40.1 % 40.0-50.0 MEAN CORPUSCULAR VOLUME (BEAKER) (test ddxw=667) 109.0 fL 82.0-98.0 MEAN CORPUSCULAR HEMOGLOBIN (BEAKER) (test rrwk=762) 32.2 pg 27.0-33.0 MEAN CORPUSCULAR HEMOGLOBIN CONC (BEAKER) (test ygsu=020) 29.7 GM/DL 32.0-36.0 RED CELL DISTRIBUTION WIDTH (BEAKER) (test xmlt=016) 14.5 % 10.3-14.2 PLATELET COUNT (BEAKER) (test cdip=867) 165 K/CU MM 150-430 MEAN PLATELET VOLUME (BEAKER) (test bndk=006) 6.6 fL 6.5-10.5 NUCLEATED RED BLOOD CELLS (BEAKER) (test ukqe=590) 0 /100 WBC 0-0 NEUTROPHILS RELATIVE PERCENT (BEAKER) (test beig=703) 77 % LYMPHOCYTES RELATIVE PERCENT (BEAKER) (test cgej=958) 12 % MONOCYTES RELATIVE PERCENT (BEAKER) (test tgxi=922) 10 % EOSINOPHILS RELATIVE PERCENT (BEAKER) (test xmbl=729) 1 % BASOPHILS RELATIVE PERCENT (BEAKER) (test uhfh=930) 0 % NEUTROPHILS ABSOLUTE COUNT (BEAKER) (test hont=259) 6.19 K/ L 1.80-8.00 LYMPHOCYTES ABSOLUTE COUNT (BEAKER) (test omft=006) 0.97 K/ L 1.48-4.50 MONOCYTES ABSOLUTE COUNT (BEAKER) (test smob=775) 0.80 K/ L 0.00-1.30 EOSINOPHILS ABSOLUTE COUNT (BEAKER) (test kwhh=255) 0.09 K/ L 0.00-0.50 BASOPHILS ABSOLUTE COUNT (BEAKER) (test kjqx=225) 0.03 K/ L 0.00-0.20 [id number] 06:16:00* Test Item Value Reference Range Comments PHOSPHORUS (BEAKER) (test vulw=253) 2.7 mg/dL 2.3-4.7 [id number] 06:16:00* Test Item Value Reference Range Comments MAGNESIUM (BEAKER) (test mfnz=424) 1.8 mg/dL 1.6-2.6 COMPREHENSIVE METABOLIC [id number] 06:16:00* Test Item Value Reference Range Comments TOTAL PROTEIN (BEAKER) (test llkg=808) 7.6 gm/dL 6.0-8.3 ALBUMIN (BEAKER) (test sdmz=4752) 3.4 g/dL 3.5-5.0 ALKALINE PHOSPHATASE (BEAKER) (test jacj=331) 106 U/L 40-150 BILIRUBIN TOTAL (BEAKER) (test tqxp=719) 1.4 mg/dL 0.2-1.2 SODIUM (BEAKER) (test wyga=836) 146 meq/L 136-145 POTASSIUM (BEAKER) (test rznp=740) 3.9 meq/L 3.5-5.1 CHLORIDE (BEAKER) (test ooyh=548) 106 meq/L 98-107 CO2 (BEAKER) (test iekf=011) 31 meq/L 22-29 BLOOD UREA NITROGEN (BEAKER) (test feie=663) 21 mg/dL 7-21 CREATININE (BEAKER) (test eyao=399) 1.17 mg/dL 0.57-1.25 GLUCOSE RANDOM (BEAKER) (test jlge=669) 110 mg/dL 70-105 CALCIUM (BEAKER) (test alna=168) 9.6 mg/dL 8.4-10.2 AST (SGOT) (BEAKER) (test fetn=131) 27 U/L 5-34 ALT (SGPT) (BEAKER) (test rpeg=035) 17 U/L 6-55 EGFR (BEAKER) (test iyvj=4384) 64 mL/min/1.73 sq m ESTIMATED GFR IS NOT ACCURATE CREATININE CLEARANCE IN PREDICTING GLOMERULAR FILTRATION RATE. ESTIMATED GFR IS NOT APPLICABLE FOR DIALYSIS PATIENTS. BLOOD [id number] 06:00:00* Test Item Value Reference Range Comments CULTURE (BEAKER) (test aceu=4236) No growth in 5 days BLOOD [id number] 06:00:00* Test Item Value Reference Range Comments CULTURE (BEAKER) (test pnmo=5095) No growth in 5 days POCT-GLUCOSE [id number] 21:07:00* Test Item Value Reference Range Comments POC-GLUCOSE METER (BEAKER) (test txyt=7280) 125 mg/dL 70-110 TESTED AT [facility] [address] [facility] [address] POCT-GLUCOSE [id number] 10:56:00* Test Item Value Reference Range Comments POC-GLUCOSE METER (BEAKER) (test ytag=7176) 112 mg/dL 70-110 TESTED AT [place] [id number] [facility] [address] POCT-GLUCOSE [id number] 07:53:00* Test Item Value Reference Range Comments POC-GLUCOSE METER (BEAKER) (test bwan=5085) 109 mg/dL 70-110 TESTED AT [address] [address] CBC W/PLT COUNT & AUTO [id number] 04:34:00* Test Item Value Reference Range Comments WHITE BLOOD CELL COUNT (BEAKER) (test frfr=190) 8.3 K/ L 4.0-10.0 RED BLOOD CELL COUNT (BEAKER) (test lgng=588) 3.41 M/ L 4.20-5.80 HEMOGLOBIN (BEAKER) (test cbzh=243) 12.0 GM/DL 13.0-16.8 HEMATOCRIT (BEAKER) (test yxkc=433) 37.3 % 40.0-50.0 MEAN CORPUSCULAR VOLUME (BEAKER) (test bdev=426) 109.0 fL 82.0-98.0 MEAN CORPUSCULAR HEMOGLOBIN (BEAKER) (test seib=887) 35.1 pg 27.0-33.0 MEAN CORPUSCULAR HEMOGLOBIN CONC (BEAKER) (test cdcz=569) 32.1 GM/DL 32.0-36.0 RED CELL DISTRIBUTION WIDTH (BEAKER) (test frok=212) 14.6 % 10.3-14.2 PLATELET COUNT (BEAKER) (test qwnf=147) 147 K/CU MM 150-430 MEAN PLATELET VOLUME (BEAKER) (test bofl=866) 6.2 fL 6.5-10.5 NUCLEATED RED BLOOD CELLS (BEAKER) (test mfbd=605) 0 /100 WBC 0-0 NEUTROPHILS RELATIVE PERCENT (BEAKER) (test fzfs=323) 77 % LYMPHOCYTES RELATIVE PERCENT (BEAKER) (test bcnw=400) 11 % MONOCYTES RELATIVE PERCENT (BEAKER) (test rmnc=762) 11 % EOSINOPHILS RELATIVE PERCENT (BEAKER) (test rkth=972) 1 % BASOPHILS RELATIVE PERCENT (BEAKER) (test ebut=306) 0 % NEUTROPHILS ABSOLUTE COUNT (BEAKER) (test ljoc=292) 6.39 K/ L 1.80-8.00 LYMPHOCYTES ABSOLUTE COUNT (BEAKER) (test kice=592) 0.91 K/ L 1.48-4.50 MONOCYTES ABSOLUTE COUNT (BEAKER) (test whbc=281) 0.93 K/ L 0.00-1.30 EOSINOPHILS ABSOLUTE COUNT (BEAKER) (test jhrs=967) 0.07 K/ L 0.00-0.50 BASOPHILS ABSOLUTE COUNT (BEAKER) (test aude=572) 0.01 K/ L 0.00-0.20 [id number] 04:19:00* Test Item Value Reference Range Comments MAGNESIUM (BEAKER) (test lgxv=680) 1.9 mg/dL 1.6-2.6 Specimen slightly hemolyzed [id number] 04:19:00* Test Item Value Reference Range Comments PHOSPHORUS (BEAKER) (test drtf=601) 2.2 mg/dL 2.3-4.7 Specimen slightly hemolyzed COMPREHENSIVE METABOLIC [id number] 04:19:00* Test Item Value Reference Range Comments TOTAL PROTEIN (BEAKER) (test nygd=633) 7.0 gm/dL 6.0-8.3 Specimen slightly hemolyzed ALBUMIN (BEAKER) (test kggw=8885) 3.1 g/dL 3.5-5.0 Specimen slightly hemolyzed ALKALINE PHOSPHATASE (BEAKER) (test jrjq=037) 97 U/L 40-150 BILIRUBIN TOTAL (BEAKER) (test qowg=179) 1.4 mg/dL 0.2-1.2 Specimen slightly hemolyzed SODIUM (BEAKER) (test cgud=642) 146 meq/L 136-145 POTASSIUM (BEAKER) (test ntva=341) 3.6 meq/L 3.5-5.1 Specimen slightly hemolyzed CHLORIDE (BEAKER) (test uvgm=663) 105 meq/L 98-107 CO2 (BEAKER) (test gnor=901) 31 meq/L 22-29 BLOOD UREA NITROGEN (BEAKER) (test lcpm=337) 19 mg/dL 7-21 CREATININE (BEAKER) (test tfbn=814) 1.05 mg/dL 0.57-1.25 Specimen slightly hemolyzed GLUCOSE RANDOM (BEAKER) (test fyxj=955) 111 mg/dL 70-105 CALCIUM (BEAKER) (test hcvw=981) 9.0 mg/dL 8.4-10.2 AST (SGOT) (BEAKER) (test evhp=180) 32 U/L 5-34 Specimen slightly hemolyzed ALT (SGPT) (BEAKER) (test rbhp=599) 20 U/L 6-55 Specimen slightly hemolyzed EGFR (BEAKER) (test beti=4590) 73 mL/min/1.73 sq m ESTIMATED GFR IS NOT ACCURATE CREATININE CLEARANCE IN PREDICTING GLOMERULAR FILTRATION RATE. ESTIMATED GFR IS NOT APPLICABLE FOR DIALYSIS PATIENTS. C-REACTIVE [id number] 04:19:00* Test Item Value Reference Range Comments C-REACTIVE PROTEIN (BEAKER) (test phic=536) 1.83 mg/dL 0.00-0.50 PROTHROMBIN [id number] 04:11:00* Test Item Value Reference Range Comments PROTIME (BEAKER) (test vhbk=416) 15.3 seconds 11.7-14.7 INR (BEAKER) (test edat=128) 1.2 <=5.9 RECOMMENDED COUMADIN/WARFARIN INR THERAPY RANGESSTANDARD DOSE: 2.0 - 3.0 Inclu abby: PROPHYLAXIS for venous thrombosis, systemic embolization; TREATMENT for odalys ous thrombosis and/or pulmonary embolus.HIGH RISK: Target INR is 2.5-3.5 for pat ients with mechanical heart valves.POCT-GLUCOSE [id number] 17:16:00* Test Item Value Reference Range Comments POC-GLUCOSE METER (BEAKER) (test xmdp=3729) 97 mg/dL 70-110 TESTED AT [facility] [address] [facility] [address] POCT-GLUCOSE [id number] 11:37:00* Test Item Value Reference Range Comments POC-GLUCOSE METER (BEAKER) (test jija=4410) 104 mg/dL 70-110 TESTED AT [facility] [address] [facility] [address] POCT-GLUCOSE [id number] 07:22:00* Test Item Value Reference Range Comments POC-GLUCOSE METER (BEAKER) (test xfhs=0225) 115 mg/dL 70-110 TESTED AT [facility] [address] [facility] [address] [id number] 04:23:00* Test Item Value Reference Range Comments PHOSPHORUS (BEAKER) (test zafm=690) 1.9 mg/dL 2.3-4.7 [id number] 04:23:00* Test Item Value Reference Range Comments MAGNESIUM (BEAKER) (test vouv=206) 1.8 mg/dL 1.6-2.6 COMPREHENSIVE METABOLIC [id number] 04:23:00* Test Item Value Reference Range Comments TOTAL PROTEIN (BEAKER) (test riev=306) 7.2 gm/dL 6.0-8.3 ALBUMIN (BEAKER) (test qmwh=5109) 3.2 g/dL 3.5-5.0 ALKALINE PHOSPHATASE (BEAKER) (test ddrc=733) 97 U/L 40-150 BILIRUBIN TOTAL (BEAKER) (test bfqy=545) 1.3 mg/dL 0.2-1.2 SODIUM (BEAKER) (test ianr=931) 144 meq/L 136-145 POTASSIUM (BEAKER) (test gfbh=998) 3.4 meq/L 3.5-5.1 CHLORIDE (BEAKER) (test skin=685) 104 meq/L 98-107 CO2 (BEAKER) (test ocnh=624) 33 meq/L 22-29 BLOOD UREA NITROGEN (BEAKER) (test kkpw=764) 19 mg/dL 7-21 CREATININE (BEAKER) (test pkrg=291) 1.01 mg/dL 0.57-1.25 GLUCOSE RANDOM (BEAKER) (test yxqz=901) 121 mg/dL 70-105 CALCIUM (BEAKER) (test tmvv=420) 8.7 mg/dL 8.4-10.2 AST (SGOT) (BEAKER) (test rflu=545) 35 U/L 5-34 ALT (SGPT) (BEAKER) (test munv=704) 19 U/L 6-55 EGFR (BEAKER) (test nujs=4179) 76 mL/min/1.73 sq m ESTIMATED GFR IS NOT ACCURATE CREATININE CLEARANCE IN PREDICTING GLOMERULAR FILTRATION RATE. ESTIMATED GFR IS NOT APPLICABLE FOR DIALYSIS PATIENTS. CBC W/PLT COUNT & AUTO [id number] 04:23:00* Test Item Value Reference Range Comments WHITE BLOOD CELL COUNT (BEAKER) (test wsdo=421) 8.9 K/ L 4.0-10.0 RED BLOOD CELL COUNT (BEAKER) (test arkc=945) 3.34 M/ L 4.20-5.80 HEMOGLOBIN (BEAKER) (test wzqo=895) 11.6 GM/DL 13.0-16.8 HEMATOCRIT (BEAKER) (test slvd=908) 36.4 % 40.0-50.0 MEAN CORPUSCULAR VOLUME (BEAKER) (test tilf=111) 109.0 fL 82.0-98.0 MEAN CORPUSCULAR HEMOGLOBIN (BEAKER) (test qdlc=196) 34.8 pg 27.0-33.0 MEAN CORPUSCULAR HEMOGLOBIN CONC (BEAKER) (test gosq=314) 31.9 GM/DL 32.0-36.0 RED CELL DISTRIBUTION WIDTH (BEAKER) (test dlpr=671) 14.7 % 10.3-14.2 PLATELET COUNT (BEAKER) (test pjxc=426) 156 K/CU MM 150-430 MEAN PLATELET VOLUME (BEAKER) (test ikbt=088) 6.1 fL 6.5-10.5 NUCLEATED RED BLOOD CELLS (BEAKER) (test hade=733) 0 /100 WBC 0-0 NEUTROPHILS RELATIVE PERCENT (BEAKER) (test yfje=832) 79 % LYMPHOCYTES RELATIVE PERCENT (BEAKER) (test sjif=498) 9 % MONOCYTES RELATIVE PERCENT (BEAKER) (test mzem=521) 11 % EOSINOPHILS RELATIVE PERCENT (BEAKER) (test xnck=534) 1 % BASOPHILS RELATIVE PERCENT (BEAKER) (test vogm=878) 0 % NEUTROPHILS ABSOLUTE COUNT (BEAKER) (test ntaj=333) 7.02 K/ L 1.80-8.00 LYMPHOCYTES ABSOLUTE COUNT (BEAKER) (test swox=679) 0.82 K/ L 1.48-4.50 MONOCYTES ABSOLUTE COUNT (BEAKER) (test byno=336) 0.96 K/ L 0.00-1.30 EOSINOPHILS ABSOLUTE COUNT (BEAKER) (test blqv=155) 0.05 K/ L 0.00-0.50 BASOPHILS ABSOLUTE COUNT (BEAKER) (test pior=085) 0.02 K/ L 0.00-0.20 0.00PROTHROMBIN [id number] 04:11:00* Test Item Value Reference Range Comments PROTIME (BEAKER) (test wwvz=812) 14.7 seconds 11.7-14.7 INR (BEAKER) (test hvtl=378) 1.2 <=5.9 RECOMMENDED COUMADIN/WARFARIN INR THERAPY RANGESSTANDARD DOSE: 2.0 - 3.0 Inclu abby: PROPHYLAXIS for venous thrombosis, systemic embolization; TREATMENT for odalys ous thrombosis and/or pulmonary embolus.HIGH RISK: Target INR is 2.5-3.5 for pat ients with mechanical heart valves.BLOOD GAS, [id number] 04:09:00* Test Item Value Reference Range Comments PH ARTERIAL (BEAKER) (test lgmn=502) 7.40 7.35-7.45 PCO2 ARTERIAL (BEAKER) (test iuxu=495) 61 mmHg 35-45 PO2 ARTERIAL (BEAKER) (test ogor=957) 85 mmHg 80-90 O2 SATURATION ARTERIAL (BEAKER) (test hrwu=153) 96.4 % 96.0-97.0 HCO3 ARTERIAL (BEAKER) (test hoem=381) 37 mmol/L 21-29 BASE EXCESS ARTERIAL (BEAKER) (test pram=454) 9.7 mmol/L -2.0-3.0 PATIENT TEMPERATURE (BEAKER) (test lziu=4166) 36.4 C FIO2 (BEAKER) (test rqar=7490) 35.0 % POCT-GLUCOSE [id number] 22:06:00* Test Item Value Reference Range Comments POC-GLUCOSE METER (BEAKER) (test gsou=1761) 131 mg/dL 70-110 TESTED AT [place] [id number] [facility] [address] POCT-GLUCOSE [id number] 16:56:00* Test Item Value Reference Range Comments POC-GLUCOSE METER (BEAKER) (test emih=4189) 114 mg/dL 70-110 TESTED AT [address] [address] POCT-GLUCOSE [id number] 11:26:00* Test Item Value Reference Range Comments POC-GLUCOSE METER (BEAKER) (test cakb=0772) 127 mg/dL 70-110 TESTED AT [address] [address] VANCOMYCIN LEVEL, [id number] 08:56:00* Test Item Value Reference Range Comments VANCOMYCIN TROUGH (BEAKER) (test daac=566) 18.5 ug/mL 10.0-20.0 30 min before next dosePROTHROMBIN [id number] 08:37:00* Test Item Value Reference Range Comments PROTIME (BEAKER) (test aymt=473) 15.1 seconds 11.7-14.7 INR (BEAKER) (test vdqv=852) 1.2 <=5.9 RECOMMENDED COUMADIN/WARFARIN INR THERAPY RANGESSTANDARD DOSE: 2.0 - 3.0 Inclu abby: PROPHYLAXIS for venous thrombosis, systemic embolization; TREATMENT for odalys ous thrombosis and/or pulmonary embolus.HIGH RISK: Target INR is 2.5-3.5 for pat ients with mechanical heart valves.POCT-GLUCOSE [id number] 07:30:00* Test Item Value Reference Range Comments POC-GLUCOSE METER ([facility]) (test kcxy=2830) 127 mg/dL 70-110 TESTED AT [address] [address] [id number] 05:56:00* Test Item Value Reference Range Comments MAGNESIUM (BEAKER) (test nzbn=251) 1.8 mg/dL 1.6-2.6 Specimen slightly hemolyzed [id number] 05:56:00* Test Item Value Reference Range Comments PHOSPHORUS (BEAKER) (test nbqm=791) 2.0 mg/dL 2.3-4.7 Specimen slightly hemolyzed COMPREHENSIVE METABOLIC [id number] 05:56:00* Test Item Value Reference Range Comments TOTAL PROTEIN (BEAKER) (test fdfv=066) 7.0 gm/dL 6.0-8.3 Specimen slightly hemolyzed ALBUMIN (BEAKER) (test pnvy=0096) 3.1 g/dL 3.5-5.0 Specimen slightly hemolyzed ALKALINE PHOSPHATASE (BEAKER) (test scbh=126) 95 U/L 40-150 BILIRUBIN TOTAL (BEAKER) (test ribr=805) 1.2 mg/dL 0.2-1.2 Specimen slightly hemolyzed SODIUM (BEAKER) (test fpcf=950) 145 meq/L 136-145 POTASSIUM (BEAKER) (test hogn=388) 3.7 meq/L 3.5-5.1 Specimen slightly hemolyzed CHLORIDE (BEAKER) (test tnyu=408) 103 meq/L 98-107 CO2 (BEAKER) (test suas=640) 33 meq/L 22-29 BLOOD UREA NITROGEN (BEAKER) (test rtdr=473) 18 mg/dL 7-21 CREATININE (BEAKER) (test dfgh=880) 1.12 mg/dL 0.57-1.25 Specimen slightly hemolyzed GLUCOSE RANDOM (BEAKER) (test kmwg=198) 115 mg/dL 70-105 CALCIUM (BEAKER) (test tvvl=963) 8.4 mg/dL 8.4-10.2 AST (SGOT) (BEAKER) (test wddi=847) 34 U/L 5-34 Specimen slightly hemolyzed ALT (SGPT) (BEAKER) (test kepl=659) 18 U/L 6-55 Specimen slightly hemolyzed EGFR (BEAKER) (test lyke=5624) 68 mL/min/1.73 sq m ESTIMATED GFR IS NOT ACCURATE CREATININE CLEARANCE IN PREDICTING GLOMERULAR FILTRATION RATE. ESTIMATED GFR IS NOT APPLICABLE FOR DIALYSIS PATIENTS. CBC W/PLT COUNT & AUTO [id number] 05:53:00* Test Item Value Reference Range Comments WHITE BLOOD CELL COUNT (BEAKER) (test wspu=127) 9.8 K/ L 4.0-10.0 RED BLOOD CELL COUNT (BEAKER) (test pwqb=071) 3.25 M/ L 4.20-5.80 HEMOGLOBIN (BEAKER) (test deji=876) 11.1 GM/DL 13.0-16.8 HEMATOCRIT (BEAKER) (test igit=734) 35.4 % 40.0-50.0 MEAN CORPUSCULAR VOLUME (BEAKER) (test saxz=009) 109.0 fL 82.0-98.0 MEAN CORPUSCULAR HEMOGLOBIN (BEAKER) (test aitx=648) 34.1 pg 27.0-33.0 MEAN CORPUSCULAR HEMOGLOBIN CONC (BEAKER) (test nxbx=723) 31.3 GM/DL 32.0-36.0 RED CELL DISTRIBUTION WIDTH (BEAKER) (test weke=305) 16.0 % 10.3-14.2 PLATELET COUNT (BEAKER) (test usbi=176) 145 K/CU MM 150-430 MEAN PLATELET VOLUME (BEAKER) (test visi=797) 6.5 fL 6.5-10.5 NUCLEATED RED BLOOD CELLS (BEAKER) (test elpp=832) 0 /100 WBC 0-0 NEUTROPHILS RELATIVE PERCENT (BEAKER) (test dfcx=927) 81 % LYMPHOCYTES RELATIVE PERCENT (BEAKER) (test hqla=374) 8 % MONOCYTES RELATIVE PERCENT (BEAKER) (test zbfx=966) 11 % EOSINOPHILS RELATIVE PERCENT (BEAKER) (test duuf=756) 1 % BASOPHILS RELATIVE PERCENT (BEAKER) (test konv=686) 0 % NEUTROPHILS ABSOLUTE COUNT (BEAKER) (test sgvs=510) 7.87 K/ L 1.80-8.00 LYMPHOCYTES ABSOLUTE COUNT (BEAKER) (test hwxb=866) 0.77 K/ L 1.48-4.50 MONOCYTES ABSOLUTE COUNT (BEAKER) (test ueer=813) 1.06 K/ L 0.00-1.30 EOSINOPHILS ABSOLUTE COUNT (BEAKER) (test pcjf=843) 0.07 K/ L 0.00-0.50 BASOPHILS ABSOLUTE COUNT (BEAKER) (test xfjo=759) 0.01 K/ L 0.00-0.20 0.00PROTHROMBIN [id number] 05:45:00* Test Item Value Reference Range Comments PROTIME (BEAKER) (test rqbz=019) 15.5 seconds 11.7-14.7 INR (BEAKER) (test azeb=394) 1.2 <=5.9 RECOMMENDED COUMADIN/WARFARIN INR THERAPY RANGESSTANDARD DOSE: 2.0 - 3.0 Inclu abyb: PROPHYLAXIS for venous thrombosis, systemic embolization; TREATMENT for odalys ous thrombosis and/or pulmonary embolus.HIGH RISK: Target INR is 2.5-3.5 for pat ients with mechanical heart valves.POCT-GLUCOSE [id number] 21:33:00* Test Item Value Reference Range Comments POC-GLUCOSE METER (BEAKER) (test upah=5732) 175 mg/dL 70-110 TESTED AT [facility] [address] [facility] [address] POCT-GLUCOSE [id number] 18:42:00* Test Item Value Reference Range Comments POC-GLUCOSE METER (BEAKER) (test zwas=6158) 150 mg/dL 70-110 TESTED AT [facility] [address] [facility] [address] T4, [id number] 12:09:00* Test Item Value Reference Range Comments FREE T4 (BEAKER) (test dase=577) 0.62 ng/dL 0.70-1.48 POCT-GLUCOSE [id number] 12:01:00* Test Item Value Reference Range Comments POC-GLUCOSE METER (BEAKER) (test hrdb=2387) 118 mg/dL 70-110 TESTED AT [facility] [address] [facility] [address] PROTHROMBIN [id number] 11:56:00* Test Item Value Reference Range Comments PROTIME (BEAKER) (test ddae=258) 15.2 seconds 11.7-14.7 INR (BEAKER) (test qrpv=882) 1.2 <=5.9 RECOMMENDED COUMADIN/WARFARIN INR THERAPY RANGESSTANDARD DOSE: 2.0 - 3.0 Inclu abby: PROPHYLAXIS for venous thrombosis, systemic embolization; TREATMENT for odalys ous thrombosis and/or pulmonary embolus.HIGH RISK: Target INR is 2.5-3.5 for pat ients with mechanical heart valves.POCT-GLUCOSE [id number] 08:42:00* Test Item Value Reference Range Comments POC-GLUCOSE METER (BEAKER) (test hdwr=0984) 121 mg/dL 70-110 TESTED AT [facility] [address] [facility] [address] HEMOGLOBIN [id number] 08:08:00* Test Item Value Reference Range Comments HEMOGLOBIN A1C (BEAKER) (test zsmu=231) 6.2 % 4.3-6.1 [id number] 04:28:00* Test Item Value Reference Range Comments PHOSPHORUS (BEAKER) (test onqk=052) 2.6 mg/dL 2.3-4.7 [id number] 04:28:00* Test Item Value Reference Range Comments MAGNESIUM (BEAKER) (test fant=483) 1.9 mg/dL 1.6-2.6 COMPREHENSIVE METABOLIC [id number] 04:28:00* Test Item Value Reference Range Comments TOTAL PROTEIN (BEAKER) (test osql=065) 7.1 gm/dL 6.0-8.3 ALBUMIN (BEAKER) (test objz=7078) 3.3 g/dL 3.5-5.0 ALKALINE PHOSPHATASE (BEAKER) (test cbhb=265) 93 U/L 40-150 BILIRUBIN TOTAL (BEAKER) (test icly=440) 1.3 mg/dL 0.2-1.2 SODIUM (BEAKER) (test yvgz=411) 142 meq/L 136-145 POTASSIUM (BEAKER) (test vaav=509) 3.9 meq/L 3.5-5.1 CHLORIDE (BEAKER) (test pzal=616) 104 meq/L 98-107 CO2 (BEAKER) (test greq=100) 31 meq/L 22-29 BLOOD UREA NITROGEN (BEAKER) (test rivm=753) 21 mg/dL 7-21 CREATININE (BEAKER) (test ycrw=979) 1.20 mg/dL 0.57-1.25 GLUCOSE RANDOM (BEAKER) (test xtlm=487) 124 mg/dL 70-105 CALCIUM (BEAKER) (test uiuf=151) 8.7 mg/dL 8.4-10.2 AST (SGOT) (BEAKER) (test odtt=977) 36 U/L 5-34 ALT (SGPT) (BEAKER) (test vxpe=939) 14 U/L 6-55 EGFR (BEAKER) (test xhfp=6886) 62 mL/min/1.73 sq m ESTIMATED GFR IS NOT ACCURATE CREATININE CLEARANCE IN PREDICTING GLOMERULAR FILTRATION RATE. ESTIMATED GFR IS NOT APPLICABLE FOR DIALYSIS PATIENTS. CBC W/PLT COUNT & AUTO [id number] 04:25:00* Test Item Value Reference Range Comments WHITE BLOOD CELL COUNT (BEAKER) (test qdsg=502) 12.1 K/ L 4.0-10.0 RED BLOOD CELL COUNT (BEAKER) (test cefp=889) 3.09 M/ L 4.20-5.80 HEMOGLOBIN (BEAKER) (test leum=742) 10.7 GM/DL 13.0-16.8 HEMATOCRIT (BEAKER) (test zhuq=358) 33.7 % 40.0-50.0 MEAN CORPUSCULAR VOLUME (BEAKER) (test wxid=183) 109.0 fL 82.0-98.0 MEAN CORPUSCULAR HEMOGLOBIN (BEAKER) (test tjvt=771) 34.7 pg 27.0-33.0 MEAN CORPUSCULAR HEMOGLOBIN CONC (BEAKER) (test xrut=553) 31.8 GM/DL 32.0-36.0 RED CELL DISTRIBUTION WIDTH (BEAKER) (test rqqc=364) 15.9 % 10.3-14.2 PLATELET COUNT (BEAKER) (test tzma=262) 144 K/CU MM 150-430 MEAN PLATELET VOLUME (BEAKER) (test kofa=109) 6.2 fL 6.5-10.5 NUCLEATED RED BLOOD CELLS (BEAKER) (test gfsb=100) 0 /100 WBC 0-0 NEUTROPHILS RELATIVE PERCENT (BEAKER) (test mkrv=912) 85 % LYMPHOCYTES RELATIVE PERCENT (BEAKER) (test xyga=885) 4 % MONOCYTES RELATIVE PERCENT (BEAKER) (test uqbe=672) 11 % EOSINOPHILS RELATIVE PERCENT (BEAKER) (test lqes=344) 1 % BASOPHILS RELATIVE PERCENT (BEAKER) (test owum=757) 0 % NEUTROPHILS ABSOLUTE COUNT (BEAKER) (test tfqp=183) 10.20 K/ L 1.80-8.00 LYMPHOCYTES ABSOLUTE COUNT (BEAKER) (test ewux=352) 0.51 K/ L 1.48-4.50 MONOCYTES ABSOLUTE COUNT (BEAKER) (test ixan=259) 1.30 K/ L 0.00-1.30 EOSINOPHILS ABSOLUTE COUNT (BEAKER) (test muty=218) 0.08 K/ L 0.00-0.50 BASOPHILS ABSOLUTE COUNT (BEAKER) (test wjht=439) 0.00 K/ L 0.00-0.20 0.00PROTHROMBIN [id number] 22:23:00* Test Item Value Reference Range Comments PROTIME (BEAKER) (test pbxe=276) 14.6 seconds 11.7-14.7 INR (BEAKER) (test sljs=115) 1.2 <=5.9 RECOMMENDED COUMADIN/WARFARIN INR THERAPY RANGESSTANDARD DOSE: 2.0 - 3.0 Inclu abby: PROPHYLAXIS for venous thrombosis, systemic embolization; TREATMENT for odalys ous thrombosis and/or pulmonary embolus.HIGH RISK: Target INR is 2.5-3.5 for pat ients with mechanical heart valves.POCT-GLUCOSE [id number] 22:08:00* Test Item Value Reference Range Comments POC-GLUCOSE METER (BEAKER) (test ldcf=6421) 165 mg/dL 70-110 TESTED AT [facility] [address] [facility] [address] POCT-GLUCOSE [id number] 17:46:00* Test Item Value Reference Range Comments POC-GLUCOSE METER (BEAKER) (test vxuj=9957) 158 mg/dL 70-110 TESTED AT [facility] [address] [facility] [address] CORTISOL,60 [id number] 15:27:00* Test Item Value Reference Range Comments CORTISOL BASELINE NETWORKED (BEAKER) (test dtfq=1441) 22.2 mcg/dL CORTISOL 30 MINUTE NETWORKED (BEAKER) (test pasi=1222) 40.4 mcg/dL CORTISOL, 60 MINUTE (BEAKER) (test gpno=3359) 52.0 ug/dL ACTH STIMULATION TEST INTERPRETATION GUIDELINES(Synonyms: Cortrosyn Test, Co syntropin or Corticotropin Stimulation Test)Adenocorticotropic hormone (ACTH)is a tropic hormone, made in the pituitary gland, which travels trhough the bloodst ream and stimulates the cortex of the adrenal glands to release cortisol. Cortis ol is a primary hormone, which aids the body's metabolism of fats, carbohydrates , and protein as well as sodium and potassium regulation.ACTH Stimulation Test: Exogenous administration of biologically active ACTH stimulates the secretion of cortisol from the adrenal gland. This test is used to evaluate adrenal function by measuring cortisol levels at baseline and at 30 and 60 minutes after the adm inistration of 250 micrograms of cosyntropin (Cortrosyn). Patients who have rece ived exogenous corticosteroids immediately prior to performing the ACTH Stimulat ion Test will often have elevated baseline cortisol levels, which may lead to er roneous interpretation of test results. The notable exception is with dexamethas one.Normal Response: An increase in cortisol after stimulation by ACTH is normal . Post-stimulation cortisol concentration should be greater than 20 mcg/dL or th e rate of rise from baseline cortisol should be greater than or equal to 9 mcg/d L.Patients with sepsis or septic shock: According to a study by Phil et al ([facility] 2000,283(8):3364-45), the ACTH Stimulation Test provides important prognostic information. This study defined 3 groups of patients with sepsis or septic shoc k: 1. Good Survival: Low basal cortisol (<or=34 mcg/dL) and high ACTH response (>9mcg/dL) 2. Intermediate Survival: Low basal cortisol (<34 mcg/dL) and low response to ACTH (<or=9 mcg/dL) OR High basal cortisol (>34 mcg/dL) or high ACTH response (>9 mcg/dL) 3. Poor Survival: High basal cortisol (>34 mcg/dL) and low ACTH response (<or=9 mcg/dL).Treatment of patients with relative adrenal dysfunction may be indicated based on test results and the clinical condition of the patient. Additional information, including treatment recommendations, is available in critically ill patients, approved by the Pharmacy, Nutrition, and Therapeutics Committee on 07/06/2004 and available through the Pharmacy Policy and Procedure Section on [employer] Source.Do not run this test if systemic hydrocortisone, methylprednisolone, prednisolone or prednisone has been administered within the past 24 hours. Draw baseline cortisol level just prior to cosyntropin administration. Administer cosyntropin 0.25 mg diluted in 2-5 mL of normal saline slow IV Push over a period of 2 minutes. Draw serum cortisol level 30 minutes after cosyntropin administration. Draw serum cortisol level 60 minutes after cosyntropin administration. CORTISOL,30 [id number] 14:24:00* Test Item Value Reference Range Comments CORTISOL BASELINE NETWORKED (LOWELLAKER) (test czyl=2000) 22.2 mcg/dL CORTISOL, 30 MINUTE (BEAKER) (test dwoj=8046) 40.4 ug/dL ACTH STIMULATION TEST INTERPRETATION GUIDELINES(Synonyms: Cortrosyn Test, Co syntropin or Corticotropin Stimulation Test)Adenocorticotropic hormone (ACTH)is a tropic hormone, made in the pituitary gland, which travels trhough the bloodst ream and stimulates the cortex of the adrenal glands to release cortisol. Cortis ol is a primary hormone, which aids the body's metabolism of fats, carbohydrates , and protein as well as sodium and potassium regulation.ACTH Stimulation Test: Exogenous administration of biologically active ACTH stimulates the secretion of cortisol from the adrenal gland. This test is used to evaluate adrenal function by measuring cortisol levels at baseline and at 30 and 60 minutes after the adm inistration of 250 micrograms of cosyntropin (Cortrosyn). Patients who have rece ived exogenous corticosteroids immediately prior to performing the ACTH Stimulat ion Test will often have elevated baseline cortisol levels, which may lead to er roneous interpretation of test results. The notable exception is with dexamethas one.Normal Response: An increase in cortisol after stimulation by ACTH is normal . Post-stimulation cortisol concentration should be greater than 20 mcg/dL or th e rate of rise from baseline cortisol should be greater than or equal to 9 mcg/d L.Patients with sepsis or septic shock: According to a study by Phil et al ([facility] 1999,283(0):4547-45), the ACTH Stimulation Test provides important prognostic information. This study defined 3 groups of patients with sepsis or septic shoc k: 1. Good Survival: Low basal cortisol (<or=34 mcg/dL) and high ACTH response (>9mcg/dL) 2. Intermediate Survival: Low basal cortisol (<34 mcg/dL) and low response to ACTH (<or=9 mcg/dL) OR High basal cortisol (>34 mcg/dL) or high ACTH response (>9 mcg/dL) 3. Poor Survival: High basal cortisol (>34 mcg/dL) and low ACTH response (<or=9 mcg/dL).Treatment of patients with relative adrenal dysfunction may be indicated based on test results and the clinical condition of the patient. Additional information, including treatment recommendations, is available in critically ill patients, approved by the Pharmacy, Nutrition, and Therapeutics Committee on 07/06/2004 and available through the Pharmacy Policy and Procedure Section on [employer] Source.Do not run this test if systemic hydrocortisone, methylprednisolone, prednisolone or prednisone has been administered within the past 24 hours. Draw baseline cortisol level just prior to cosyntropin administration. Administer cosyntropin 0.25 mg diluted in 2-5 mL of normal saline slow IV Push over a period of 2 minutes. Draw serum cortisol level 30 minutes after cosyntropin administration. Draw serum cortisol level 60 minutes after cosyntropin administration.AMMONIA 2017-01-27 13:55:00* Test Item Value Reference Range Comments AMMONIA (BEAKER) (test eyis=809) 56 mol/L 18-72 CORTISOL,[id number] 12:49:00* Test Item Value Reference Range Comments CORTISOL, BASELINE (BEAKER) (test ljoj=3453) 22.2 ug/dL ACTH STIMULATION TEST INTERPRETATION GUIDELINES(Synonyms: Cortrosyn Test, Co syntropin or Corticotropin Stimulation Test)Adenocorticotropic hormone (ACTH)is a tropic hormone, made in the pituitary gland, which travels trhough the bloodst ream and stimulates the cortex of the adrenal glands to release cortisol. Cortis ol is a primary hormone, which aids the body's metabolism of fats, carbohydrates , and protein as well as sodium and potassium regulation.ACTH Stimulation Test: Exogenous administration of biologically active ACTH stimulates the secretion of cortisol from the adrenal gland. This test is used to evaluate adrenal function by measuring cortisol levels at baseline and at 30 and 60 minutes after the adm inistration of 250 micrograms of cosyntropin (Cortrosyn). Patients who have rece ived exogenous corticosteroids immediately prior to performing the ACTH Stimulat ion Test will often have elevated baseline cortisol levels, which may lead to er roneous interpretation of test results. The notable exception is with dexamethas one.Normal Response: An increase in cortisol after stimulation by ACTH is normal . Post-stimulation cortisol concentration should be greater than 20 mcg/dL or th e rate of rise from baseline cortisol should be greater than or equal to 9 mcg/d L.Patients with sepsis or septic shock: According to a study by Phil et al ([facility] 2000,283(8):8536-45), the ACTH Stimulation Test provides important prognostic information. This study defined 3 groups of patients with sepsis or septic shoc k: 1. Good Survival: Low basal cortisol (<or=34 mcg/dL) and high ACTH response (>9mcg/dL) 2. Intermediate Survival: Low basal cortisol (<34 mcg/dL) and low response to ACTH (<or=9 mcg/dL) OR High basal cortisol (>34 mcg/dL) or high ACTH response (>9 mcg/dL) 3. Poor Survival: High basal cortisol (>34 mcg/dL) and low ACTH response (<or=9 mcg/dL).Treatment of patients with relative adrenal dysfunction may be indicated based on test results and the clinical condition of the patient. Additional information, including treatment recommendations, is available in critically ill patients, approved by the Pharmacy, Nutrition, and Therapeutics Committee on 07/06/2004 and available through the Pharmacy Policy and Procedure Section on [employer].Do not run this test if systemic hydrocortisone, methylprednisolone, prednisolone or prednisone has been administered within the past 24 hours. Draw baseline cortisol level just prior to cosyntropin administration. Administer cosyntropin 0.25 mg diluted in 2-5 mL of normal saline slow IV Push over a period of 2 minutes. Draw serum cortisol level 30 minutes after cosyntropin administration. Draw serum cortisol level 60 minutes after cosyntropin administration.POCT- GLUCOSE [id number] 11:26:00* Test Item Value Reference Range Comments POC-GLUCOSE METER (BEAKER) (test qhdj=6963) 137 mg/dL 70-110 TESTED AT [facility] [address] [facility] [id number] CREATINE KINASE (CK), TOTAL AND [id number] 10:38:00* Test Item Value Reference Range Comments CREATINE KINASE TOTAL (BEAKER) (test wuqf=912) 592 U/L 29-200 CREATINE KINASE-MB (BEAKER) (test mwyc=703) 5.4 ng/mL 0.0-6.6 CREATINE KINASE-MB INDEX (BEAKER) (test itjh=186) 0.9 % Effective 06/14/2014: CK-MB Reference Range ChangeNew: 0.0-6.6 Previous: 0.0- 4.9CK-MB Reference Range:<6.7 Normal6.7-10.0 Borderline>10.0 Abnormal TROPONIN [id number] 10:38:00* Test Item Value Reference Range Comments TROPONIN I (BEAKER) (test jmtx=439) < ng/mL 0.00-0.03 Effective 06/14/2014: Reference Range ChangeNew: 0.00-0.03 Previous 0.00-0.15T roponin I (TnI) levels must be interpreted in the context of the presenting symp toms and the clinical findings. Elevated TnI levels indicate myocardial damage, but are not specific for ischemic heart disease. Elevated TnI levels are seen in patients with other cardiac conditions (including myocarditis and congestive he art failure), and slight TnI elevations occur in patients with other conditions, including sepsis, renal failure, acidosis, acute neurological disease, and pers istent tachyarrhythmia.T4, [id number] 08:30:00* Test Item Value Reference Range Comments FREE T4 (BEAKER) (test vivf=501) 0.45 ng/dL 0.70-1.48 POCT-GLUCOSE [id number] 07:27:00* Test Item Value Reference Range Comments POC-GLUCOSE METER (BEAKER) (test mnzs=5034) 142 mg/dL 70-110 TESTED AT [facility] [address] [facility] [facility] [address] TSH/FREE T4 IF [id number] 07:18:00* Test Item Value Reference Range Comments THYROID STIMULATING HORMONE (BEAKER) (test fngl=849) 37.62 uIU/mL 0.35-4.94 [id number] 07:15:00* Test Item Value Reference Range Comments FERRITIN (BEAKER) (test divg=699) 389 ng/mL 5-275 Effective 06/14/2014: Reference Range ChangeNew: Male 5-275 Previous: Male 22-322 Female 5-275 Female 10-291 IRON, TIBC, % SAT. (WITHOUT FERRITIN)2017-01-27 06:54:00* Test Item Value Reference Range Comments IRON (BEAKER) (test vvuo=432) 43 ug/dL 40-160 TOTAL IRON BINDING CAPACITY (BEAKER) (test lvex=314) 288 ug/dL 250-450 IRON % SATURATION (2) (BEAKER) (test wobr=8053) 15 % 20-55 [id number] 05:42:00* Test Item Value Reference Range Comments PHOSPHORUS (BEAKER) (test ooko=268) 3.1 mg/dL 2.3-4.7 [id number] 05:42:00* Test Item Value Reference Range Comments MAGNESIUM (BEAKER) (test kaqe=258) 2.1 mg/dL 1.6-2.6 LIPID [id number] 05:42:00* Test Item Value Reference Range Comments TRIGLYCERIDES (BEAKER) (test mnju=778) 126 mg/dL CHOLESTEROL (BEAKER) (test phkk=301) 186 mg/dL HDL CHOLESTEROL (BEAKER) (test ctad=201) 34 mg/dL LDL CHOLESTEROL CALCULATED (BEAKER) (test ggvm=454) 127 mg/dL Triglyceride Reference Range: Low Risk <150 Borderline 150-199 High Risk 200-499 Very High Risk >=500Cholesterol Reference Range: Low Risk <200 Borderline 200-239 High Risk >240HDL Cholesterol Reference Range: Low Risk >=60 High Risk <40LDL Cholesterol Reference Range: Optimal <100 Near Optimal 100-129 Borderline 130-159 High 160-189 Very High >=190 HEPATIC FUNCTION [id number] 05:42:00* Test Item Value Reference Range Comments TOTAL PROTEIN (BEAKER) (test gbas=322) 7.2 gm/dL 6.0-8.3 ALBUMIN (BEAKER) (test kmts=7998) 3.3 g/dL 3.5-5.0 BILIRUBIN TOTAL (BEAKER) (test bolq=283) 1.3 mg/dL 0.2-1.2 BILIRUBIN DIRECT (BEAKER) (test fzdh=839) 0.7 mg/dL 0.1-0.5 ALKALINE PHOSPHATASE (BEAKER) (test zmdx=968) 93 U/L 40-150 AST (SGOT) (BEAKER) (test vgyv=761) 38 U/L 5-34 ALT (SGPT) (BEAKER) (test kgxi=236) 12 U/L 6-55 COMPREHENSIVE METABOLIC [id number] 05:42:00* Test Item Value Reference Range Comments TOTAL PROTEIN (BEAKER) (test pyzf=670) 7.2 gm/dL 6.0-8.3 ALBUMIN (BEAKER) (test omyt=6268) 3.3 g/dL 3.5-5.0 ALKALINE PHOSPHATASE (BEAKER) (test inms=943) 93 U/L 40-150 BILIRUBIN TOTAL (BEAKER) (test ferq=022) 1.3 mg/dL 0.2-1.2 SODIUM (BEAKER) (test mznx=714) 141 meq/L 136-145 POTASSIUM (BEAKER) (test qukd=279) 4.0 meq/L 3.5-5.1 CHLORIDE (BEAKER) (test otqy=634) 104 meq/L 98-107 CO2 (BEAKER) (test edij=141) 27 meq/L 22-29 BLOOD UREA NITROGEN (BEAKER) (test sofy=175) 25 mg/dL 7-21 CREATININE (BEAKER) (test usnu=392) 1.20 mg/dL 0.57-1.25 GLUCOSE RANDOM (BEAKER) (test vrty=955) 113 mg/dL 70-105 CALCIUM (BEAKER) (test xpda=723) 8.9 mg/dL 8.4-10.2 AST (SGOT) (BEAKER) (test hntq=109) 38 U/L 5-34 ALT (SGPT) (BEAKER) (test bnsr=407) 12 U/L 6-55 EGFR (BEAKER) (test vgdn=9150) 62 mL/min/1.73 sq m ESTIMATED GFR IS NOT ACCURATE CREATININE CLEARANCE IN PREDICTING GLOMERULAR FILTRATION RATE. ESTIMATED GFR IS NOT APPLICABLE FOR DIALYSIS PATIENTS. B-TYPE NATRIURETIC FACTOR (BNP)2017-01-27 05:35:00* Test Item Value Reference Range Comments B-TYPE NATRIURETIC PEPTIDE (BEAKER) (test hkuv=515) 165 pg/mL 0-100 [id number] 05:24:00* Test Item Value Reference Range Comments PROTIME (BEAKER) (test srej=588) 15.1 seconds 11.7-14.7 INR (BEAKER) (test asjk=787) 1.2 <=5.9 PARTIAL THROMBOPLASTIN TIME (BEAKER) (test pffp=131) 32.4 seconds 22.5-36.0 RECOMMENDED COUMADIN/WARFARIN INR THERAPY RANGESSTANDARD DOSE: 2.0 - 3.0 Inclu abby: PROPHYLAXIS for venous thrombosis, systemic embolization; TREATMENT for odalys ous thrombosis and/or pulmonary embolus.HIGH RISK: Target INR is 2.5-3.5 for pat ients with mechanical heart valves.CBC W/PLT COUNT & AUTO [id number] 05:19:00* Test Item Value Reference Range Comments WHITE BLOOD CELL COUNT (BEAKER) (test wfkj=049) 12.3 K/ L 4.0-10.0 RED BLOOD CELL COUNT (BEAKER) (test rvnb=216) 3.17 M/ L 4.20-5.80 HEMOGLOBIN (BEAKER) (test ygki=712) 10.9 GM/DL 13.0-16.8 HEMATOCRIT (BEAKER) (test islf=786) 34.7 % 40.0-50.0 MEAN CORPUSCULAR VOLUME (BEAKER) (test ltft=140) 109.0 fL 82.0-98.0 MEAN CORPUSCULAR HEMOGLOBIN (BEAKER) (test egss=628) 34.3 pg 27.0-33.0 MEAN CORPUSCULAR HEMOGLOBIN CONC (BEAKER) (test jbya=490) 31.4 GM/DL 32.0-36.0 RED CELL DISTRIBUTION WIDTH (BEAKER) (test ogwb=113) 15.3 % 10.3-14.2 PLATELET COUNT (BEAKER) (test pugi=148) 173 K/CU MM 150-430 MEAN PLATELET VOLUME (BEAKER) (test nmol=866) 5.6 fL 6.5-10.5 NUCLEATED RED BLOOD CELLS (BEAKER) (test cguo=372) 0 /100 WBC 0-0 NEUTROPHILS RELATIVE PERCENT (BEAKER) (test ozlu=631) 85 % LYMPHOCYTES RELATIVE PERCENT (BEAKER) (test zjqm=074) 6 % MONOCYTES RELATIVE PERCENT (BEAKER) (test akaq=832) 9 % EOSINOPHILS RELATIVE PERCENT (BEAKER) (test ucuk=296) 0 % BASOPHILS RELATIVE PERCENT (BEAKER) (test yydz=663) 0 % NEUTROPHILS ABSOLUTE COUNT (BEAKER) (test dykw=630) 10.40 K/ L 1.80-8.00 LYMPHOCYTES ABSOLUTE COUNT (BEAKER) (test oybm=413) 0.69 K/ L 1.48-4.50 MONOCYTES ABSOLUTE COUNT (BEAKER) (test tbra=933) 1.11 K/ L 0.00-1.30 EOSINOPHILS ABSOLUTE COUNT (BEAKER) (test wjnl=347) 0.06 K/ L 0.00-0.50 BASOPHILS ABSOLUTE COUNT (BEAKER) (test bqeo=491) 0.04 K/ L 0.00-0.20 0.00CREATINE KINASE (CK), TOTAL AND [id number] 00:30:00* Test Item Value Reference Range Comments CREATINE KINASE TOTAL (BEAKER) (test vqls=996) 918 U/L 29-200 CREATINE KINASE-MB (BEAKER) (test gszc=837) 8.9 ng/mL 0.0-6.6 CREATINE KINASE-MB INDEX (BEAKER) (test eijs=958) 1.0 % Effective 06/14/2014: CK-MB Reference Range ChangeNew: 0.0-6.6 Previous: 0.0- 4.9CK-MB Reference Range:<6.7 Normal6.7-10.0 Borderline>10.0 Abnormal TROPONIN [id number] 00:30:00* Test Item Value Reference Range Comments TROPONIN I (BEAKER) (test fsvb=243) 0.01 ng/mL 0.00-0.03 Effective 06/14/2014: Reference Range ChangeNew: 0.00-0.03 Previous 0.00-0.15T roponin I (TnI) levels must be interpreted in the context of the presenting symp toms and the clinical findings. Elevated TnI levels indicate myocardial damage, but are not specific for ischemic heart disease. Elevated TnI levels are seen in patients with other cardiac conditions (including myocarditis and congestive he art failure), and slight TnI elevations occur in patients with other conditions, including sepsis, renal failure, acidosis, acute neurological disease, and pers istent tachyarrhythmia.POCT-GLUCOSE [id number] 23:26:00* Test Item Value Reference Range Comments POC-GLUCOSE METER (BEAKER) (test wzvi=0702) 132 mg/dL 70-110 TESTED AT [place] [id number] [facility] [address] PROTHROMBIN TIME/[id number] 20:26:00* Test Item Value Reference Range Comments PROTIME (BEAKER) (test ccfl=456) 12.7 seconds 11.7-14.7 INR (BEAKER) (test mbbw=584) 1.0 <=5.9 RECOMMENDED COUMADIN/WARFARIN INR THERAPY RANGESSTANDARD DOSE: 2.0 - 3.0 Inclu abby: PROPHYLAXIS for venous thrombosis, systemic embolization; TREATMENT for odalys ous thrombosis and/or pulmonary embolus.HIGH RISK: Target INR is 2.5-3.5 for pat ients with mechanical heart valves.POCT-GLUCOSE [id number] 18:10:00* Test Item Value Reference Range Comments POC-GLUCOSE METER (BEAKER) (test ybkz=8333) 155 mg/dL 70-110 TESTED AT [place] [id number] [facility] [address] LACTIC ACID, VENOUS, WHOLE [id number] 17:54:00* Test Item Value Reference Range Comments LACTATE BLOOD VENOUS (2) (BEAKER) (test bzly=3969) 0.9 mmol/L 0.5-2.2 Effective 11/29/2015: Units/Reference Range ChangeNew: 0.5-2.2 mmol/L Previous: 5 -20 mg/dLBASIC METABOLIC [id number] 15:01:00* Test Item Value Reference Range Comments SODIUM (BEAKER) (test bzyn=478) 141 meq/L 136-145 POTASSIUM (BEAKER) (test mjri=941) 3.9 meq/L 3.5-5.1 CHLORIDE (BEAKER) (test vfmj=336) 103 meq/L 98-107 CO2 (BEAKER) (test rkns=251) 28 meq/L 22-29 BLOOD UREA NITROGEN (BEAKER) (test ekvn=690) 26 mg/dL 7-21 CREATININE (BEAKER) (test qngf=433) 1.30 mg/dL 0.57-1.25 GLUCOSE RANDOM (BEAKER) (test pate=509) 132 mg/dL 70-105 CALCIUM (BEAKER) (test vwux=848) 9.0 mg/dL 8.4-10.2 EGFR (BEAKER) (test ibkh=5813) 57 mL/min/1.73 sq m ESTIMATED GFR IS NOT ACCURATE CREATININE CLEARANCE IN PREDICTING GLOMERULAR FILTRATION RATE. ESTIMATED GFR IS NOT APPLICABLE FOR DIALYSIS PATIENTS. CBC W/PLT COUNT & AUTO [id number] 14:40:00* Test Item Value Reference Range Comments WHITE BLOOD CELL COUNT (BEAKER) (test dwpv=229) 14.6 K/ L 4.0-10.0 RED BLOOD CELL COUNT (BEAKER) (test hinj=190) 3.16 M/ L 4.20-5.80 HEMOGLOBIN (BEAKER) (test trnm=557) 11.0 GM/DL 13.0-16.8 HEMATOCRIT (BEAKER) (test uojc=427) 34.3 % 40.0-50.0 MEAN CORPUSCULAR VOLUME (BEAKER) (test ijcn=121) 108.0 fL 82.0-98.0 MEAN CORPUSCULAR HEMOGLOBIN (BEAKER) (test ulwd=675) 34.7 pg 27.0-33.0 MEAN CORPUSCULAR HEMOGLOBIN CONC (BEAKER) (test enrf=062) 32.0 GM/DL 32.0-36.0 RED CELL DISTRIBUTION WIDTH (BEAKER) (test gjna=079) 15.3 % 10.3-14.2 PLATELET COUNT (BEAKER) (test lfdx=964) 182 K/CU MM 150-430 MEAN PLATELET VOLUME (BEAKER) (test cgpj=759) 5.5 fL 6.5-10.5 NUCLEATED RED BLOOD CELLS (BEAKER) (test wkxm=594) 0 /100 WBC 0-0 NEUTROPHILS RELATIVE PERCENT (BEAKER) (test dssg=816) 86 % LYMPHOCYTES RELATIVE PERCENT (BEAKER) (test ndvq=153) 5 % MONOCYTES RELATIVE PERCENT (BEAKER) (test paib=239) 9 % EOSINOPHILS RELATIVE PERCENT (BEAKER) (test cbkt=727) 0 % BASOPHILS RELATIVE PERCENT (BEAKER) (test xdcg=147) 0 % NEUTROPHILS ABSOLUTE COUNT (BEAKER) (test ehin=337) 12.50 K/ L 1.80-8.00 LYMPHOCYTES ABSOLUTE COUNT (BEAKER) (test yrxz=129) 0.69 K/ L 1.48-4.50 MONOCYTES ABSOLUTE COUNT (BEAKER) (test exlh=463) 1.35 K/ L 0.00-1.30 EOSINOPHILS ABSOLUTE COUNT (BEAKER) (test jdid=643) 0.06 K/ L 0.00-0.50 BASOPHILS ABSOLUTE COUNT (BEAKER) (test eojh=236) 0.00 K/ L 0.00-0.20 0.00CREATINE KINASE (CK), TOTAL AND [id number] 14:23:00* Test Item Value Reference Range Comments CREATINE KINASE TOTAL (BEAKER) (test uvqk=700) 215 U/L 29-200 CREATINE KINASE-MB (BEAKER) (test jser=291) 3.8 ng/mL 0.0-6.6 CREATINE KINASE-MB INDEX (BEAKER) (test cdjg=462) 1.8 % Effective 06/14/2014: CK-MB Reference Range ChangeNew: 0.0-6.6 Previous: 0.0- 4.9CK-MB Reference Range:<6.7 Normal6.7-10.0 Borderline>10.0 Abnormal TROPONIN [id number] 14:23:00* Test Item Value Reference Range Comments TROPONIN I (BEAKER) (test wxpr=073) < ng/mL 0.00-0.03 Effective 06/14/2014: Reference Range ChangeNew: 0.00-0.03 Previous 0.00-0.15T roponin I (TnI) levels must be interpreted in the context of the presenting symp toms and the clinical findings. Elevated TnI levels indicate myocardial damage, but are not specific for ischemic heart disease. Elevated TnI levels are seen in patients with other cardiac conditions (including myocarditis and congestive he art failure), and slight TnI elevations occur in patients with other conditions, including sepsis, renal failure, acidosis, acute neurological disease, and pers istent tachyarrhythmia.BLOOD GAS, [id number] 13:58:00* Test Item Value Reference Range Comments PH ARTERIAL (BEAKER) (test gojo=322) 7.34 7.35-7.45 PCO2 ARTERIAL (BEAKER) (test pasd=704) 60 mmHg 35-45 PO2 ARTERIAL (BEAKER) (test ystt=951) 148 mmHg 80-90 O2 SATURATION ARTERIAL (BEAKER) (test zsdp=748) 98.7 % 96.0-97.0 HCO3 ARTERIAL (BEAKER) (test bmrb=924) 32 mmol/L 21-29 BASE EXCESS ARTERIAL (BEAKER) (test sioo=673) 4.5 mmol/L -2.0-3.0 PATIENT TEMPERATURE (BEAKER) (test mcyr=3283) 37.0 C FIO2 (BEAKER) (test oktr=2386) 36.0 % [id number] 13:48:00* Test Item Value Reference Range Comments PROTIME (BEAKER) (test jfwu=596) 25.4 seconds 11.7-14.7 INR (BEAKER) (test peyi=536) 2.3 <=5.9 PARTIAL THROMBOPLASTIN TIME (BEAKER) (test fpws=590) 45.6 seconds 22.5-36.0 RECOMMENDED COUMADIN/WARFARIN INR THERAPY RANGESSTANDARD DOSE: 2.0 - 3.0 Inclu abby: PROPHYLAXIS for venous thrombosis, systemic embolization; TREATMENT for odalsy ous thrombosis and/or pulmonary embolus.HIGH RISK: Target INR is 2.5-3.5 for pat ients with mechanical heart valves.PROTHROMBIN TIME/[id number] 13:47:00* Test Item Value Reference Range Comments PROTIME (BEAKER) (test laqs=584) 25.4 seconds 11.7-14.7 INR (BEAKER) (test sdyl=612) 2.3 <=5.9 RECOMMENDED COUMADIN/WARFARIN INR THERAPY RANGESSTANDARD DOSE: 2.0 - 3.0 Inclu abby: PROPHYLAXIS for venous thrombosis, systemic embolization; TREATMENT for odalys ous thrombosis and/or pulmonary embolus.HIGH RISK: Target INR is 2.5-3.5 for pat ients with mechanical heart valves.BLOOD GAS, [id number] 13:31:00* Test Item Value Reference Range Comments PH ARTERIAL (BEAKER) (test thiq=496) 7.27 7.35-7.45 PCO2 ARTERIAL (BEAKER) (test slde=237) 24 mmHg 35-45 PO2 ARTERIAL (BEAKER) (test wnpu=884) 27 mmHg 80-90 O2 SATURATION ARTERIAL (BEAKER) (test kuun=335) 44.7 % 96.0-97.0 HCO3 ARTERIAL (BEAKER) (test pzhp=828) 11 mmol/L 21-29 BASE EXCESS ARTERIAL (BEAKER) (test hhay=523) -15.0 mmol/L -2.0-3.0 PATIENT TEMPERATURE (BEAKER) (test mnkb=2442) 36.8 C FIO2 (BEAKER) (test gyrz=8413) 35.0 % POCT-GLUCOSE [id number] 12:34:00* Test Item Value Reference Range Comments POC-GLUCOSE METER (BEAKER) (test vefn=8583) 143 mg/dL 70-110 TESTED AT [facility] [address] [facility] [address] POCT-GLUCOSE [id number] 07:59:00* Test Item Value Reference Range Comments POC-GLUCOSE METER (BEAKER) (test ezbu=7069) 127 mg/dL 70-110 TESTED AT [facility] [address] [facility] [address] [id number] 04:38:00* Test Item Value Reference Range Comments MAGNESIUM (BEAKER) (test ndpn=340) 2.4 mg/dL 1.6-2.6 Specimen slightly hemolyzed [id number] 04:38:00* Test Item Value Reference Range Comments PHOSPHORUS (BEAKER) (test covn=672) 3.1 mg/dL 2.3-4.7 Specimen slightly hemolyzed COMPREHENSIVE METABOLIC [id number] 04:38:00* Test Item Value Reference Range Comments TOTAL PROTEIN (BEAKER) (test fdub=224) 8.2 gm/dL 6.0-8.3 Specimen slightly hemolyzed ALBUMIN (BEAKER) (test hpuc=6193) 3.7 g/dL 3.5-5.0 Specimen slightly hemolyzed ALKALINE PHOSPHATASE (BEAKER) (test tcbe=476) 105 U/L 40-150 BILIRUBIN TOTAL (BEAKER) (test pqtr=884) 1.4 mg/dL 0.2-1.2 Specimen slightly hemolyzed SODIUM (BEAKER) (test twnh=038) 137 meq/L 136-145 POTASSIUM (BEAKER) (test oceb=306) 4.1 meq/L 3.5-5.1 Specimen slightly hemolyzed CHLORIDE (BEAKER) (test sqpw=735) 100 meq/L 98-107 CO2 (BEAKER) (test jsqt=520) 28 meq/L 22-29 BLOOD UREA NITROGEN (BEAKER) (test vwfr=192) 28 mg/dL 7-21 CREATININE (BEAKER) (test ocbi=186) 1.43 mg/dL 0.57-1.25 Specimen slightly hemolyzed GLUCOSE RANDOM (BEAKER) (test qihb=485) 130 mg/dL 70-105 CALCIUM (BEAKER) (test xtcc=503) 9.3 mg/dL 8.4-10.2 AST (SGOT) (BEAKER) (test uton=525) 27 U/L 5-34 Specimen slightly hemolyzed ALT (SGPT) (BEAKER) (test nhin=597) 10 U/L 6-55 Specimen slightly hemolyzed EGFR (BEAKER) (test jrcu=7998) 51 mL/min/1.73 sq m ESTIMATED GFR IS NOT ACCURATE CREATININE CLEARANCE IN PREDICTING GLOMERULAR FILTRATION RATE. ESTIMATED GFR IS NOT APPLICABLE FOR DIALYSIS PATIENTS. PROTHROMBIN TIME/[id number] 04:28:00* Test Item Value Reference Range Comments PROTIME (BEAKER) (test rcrq=419) 14.1 seconds 11.7-14.7 INR (BEAKER) (test tvml=621) 1.1 <=5.9 RECOMMENDED COUMADIN/WARFARIN INR THERAPY RANGESSTANDARD DOSE: 2.0 - 3.0 Inclu abby: PROPHYLAXIS for venous thrombosis, systemic embolization; TREATMENT for odalys ous thrombosis and/or pulmonary embolus.HIGH RISK: Target INR is 2.5-3.5 for pat ients with mechanical heart valves.CBC W/PLT COUNT & AUTO [id number] 04:26:00* Test Item Value Reference Range Comments WHITE BLOOD CELL COUNT (BEAKER) (test usht=990) 13.1 K/ L 4.0-10.0 RED BLOOD CELL COUNT (BEAKER) (test reyr=425) 3.25 M/ L 4.20-5.80 HEMOGLOBIN (BEAKER) (test oybh=621) 11.4 GM/DL 13.0-16.8 HEMATOCRIT (BEAKER) (test zgai=446) 34.8 % 40.0-50.0 MEAN CORPUSCULAR VOLUME (BEAKER) (test eslh=574) 107.0 fL 82.0-98.0 MEAN CORPUSCULAR HEMOGLOBIN (BEAKER) (test pklc=994) 35.2 pg 27.0-33.0 MEAN CORPUSCULAR HEMOGLOBIN CONC (BEAKER) (test eayc=646) 32.9 GM/DL 32.0-36.0 RED CELL DISTRIBUTION WIDTH (BEAKER) (test stbm=068) 16.3 % 10.3-14.2 PLATELET COUNT (BEAKER) (test mqrx=780) 203 K/CU MM 150-430 MEAN PLATELET VOLUME (BEAKER) (test uoeg=935) 5.7 fL 6.5-10.5 NUCLEATED RED BLOOD CELLS (BEAKER) (test annk=331) 0 /100 WBC 0-0 NEUTROPHILS RELATIVE PERCENT (BEAKER) (test zzrh=841) 87 % LYMPHOCYTES RELATIVE PERCENT (BEAKER) (test dlqo=239) 5 % MONOCYTES RELATIVE PERCENT (BEAKER) (test fcmz=537) 8 % EOSINOPHILS RELATIVE PERCENT (BEAKER) (test fjqx=745) 1 % BASOPHILS RELATIVE PERCENT (BEAKER) (test ctic=849) 0 % NEUTROPHILS ABSOLUTE COUNT (BEAKER) (test ljms=059) 11.40 K/ L 1.80-8.00 LYMPHOCYTES ABSOLUTE COUNT (BEAKER) (test sbxm=445) 0.63 K/ L 1.48-4.50 MONOCYTES ABSOLUTE COUNT (BEAKER) (test pzpf=084) 1.00 K/ L 0.00-1.30 EOSINOPHILS ABSOLUTE COUNT (BEAKER) (test cnlm=220) 0.07 K/ L 0.00-0.50 BASOPHILS ABSOLUTE COUNT (BEAKER) (test metz=553) 0.01 K/ L 0.00-0.20 0.00POCT-GLUCOSE [id number] 22:08:00* Test Item Value Reference Range Comments POC-GLUCOSE METER (BEAKER) (test wwuc=7953) 161 mg/dL 70-110 TESTED AT [facility] [address] [facility] [address] PROTHROMBIN TIME/[id number] 17:26:00* Test Item Value Reference Range Comments PROTIME (BEAKER) (test zjgz=802) 14.7 seconds 11.7-14.7 INR (BEAKER) (test effn=720) 1.2 <=5.9 RECOMMENDED COUMADIN/WARFARIN INR THERAPY RANGESSTANDARD DOSE: 2.0 - 3.0 Inclu abby: PROPHYLAXIS for venous thrombosis, systemic embolization; TREATMENT for odalys ous thrombosis and/or pulmonary embolus.HIGH RISK: Target INR is 2.5-3.5 for pat ients with mechanical heart valves.POCT-GLUCOSE [id number] 17:10:00* Test Item Value Reference Range Comments POC-GLUCOSE METER (BEAKER) (test abjc=5699) 149 mg/dL 70-110 TESTED AT [facility] [address] [facility] [address] CBC W/PLT COUNT & AUTO [id number] 15:21:00* Test Item Value Reference Range Comments WHITE BLOOD CELL COUNT (BEAKER) (test vasg=612) 12.1 K/ L 4.0-10.0 RED BLOOD CELL COUNT (BEAKER) (test kqnt=754) 3.20 M/ L 4.20-5.80 HEMOGLOBIN (BEAKER) (test ongv=765) 10.9 GM/DL 13.0-16.8 HEMATOCRIT (BEAKER) (test ykvl=708) 34.4 % 40.0-50.0 MEAN CORPUSCULAR VOLUME (BEAKER) (test lacu=571) 107.0 fL 82.0-98.0 MEAN CORPUSCULAR HEMOGLOBIN (BEAKER) (test pphe=018) 34.1 pg 27.0-33.0 MEAN CORPUSCULAR HEMOGLOBIN CONC (BEAKER) (test wcgq=697) 31.7 GM/DL 32.0-36.0 RED CELL DISTRIBUTION WIDTH (BEAKER) (test hfro=399) 16.6 % 10.3-14.2 PLATELET COUNT (BEAKER) (test txdf=428) 217 K/CU MM 150-430 MEAN PLATELET VOLUME (BEAKER) (test ogep=409) 5.9 fL 6.5-10.5 NUCLEATED RED BLOOD CELLS (BEAKER) (test rbxi=952) 0 /100 WBC 0-0 NEUTROPHILS RELATIVE PERCENT (BEAKER) (test fjgc=884) 84 % LYMPHOCYTES RELATIVE PERCENT (BEAKER) (test gwto=818) 6 % MONOCYTES RELATIVE PERCENT (BEAKER) (test fwnh=524) 9 % EOSINOPHILS RELATIVE PERCENT (BEAKER) (test covw=341) 1 % BASOPHILS RELATIVE PERCENT (BEAKER) (test exks=809) 0 % NEUTROPHILS ABSOLUTE COUNT (BEAKER) (test gzjf=940) 10.10 K/ L 1.80-8.00 LYMPHOCYTES ABSOLUTE COUNT (BEAKER) (test dxfa=122) 0.76 K/ L 1.48-4.50 MONOCYTES ABSOLUTE COUNT (BEAKER) (test npwv=971) 1.12 K/ L 0.00-1.30 EOSINOPHILS ABSOLUTE COUNT (BEAKER) (test cqnn=637) 0.11 K/ L 0.00-0.50 BASOPHILS ABSOLUTE COUNT (BEAKER) (test ydgt=986) 0.01 K/ L 0.00-0.20 0.000.550.000.000.000.00(MANUAL DIFFERENTIAL)2017-01-25 15:21:00* Test Item Value Reference Range Comments TOTAL COUNTED (BEAKER) (test nkqn=7989) WBC MORPHOLOGY (BEAKER) (test frpg=808) Normal PLT MORPHOLOGY (BEAKER) (test apka=690) Normal ANISOCYTOSIS (BEAKER) (test ankz=776) 1+ few MACROCYTES (BEAKER) (test unin=614) 1+ few POIKILOCYTES (BEAKER) (test abtu=388) 1+ few POCT-GLUCOSE [id number] 11:40:00* Test Item Value Reference Range Comments POC-GLUCOSE METER (BEAKER) (test hgol=1401) 131 mg/dL 70-110 TESTED AT [place] [id number] [facility] [address] POCT-GLUCOSE [id number] 07:43:00* Test Item Value Reference Range Comments POC-GLUCOSE METER (BEAKER) (test orkc=0726) 127 mg/dL 70-110 TESTED AT [address] [address] BLOOD GAS, [id number] 06:32:00* Test Item Value Reference Range Comments PH ARTERIAL (BEAKER) (test vees=544) 7.40 7.35-7.45 PCO2 ARTERIAL (BEAKER) (test cjsm=135) 50 mmHg 35-45 PO2 ARTERIAL (BEAKER) (test ugdh=270) 220 mmHg 80-90 O2 SATURATION ARTERIAL (BEAKER) (test unlb=355) 99.5 % 96.0-97.0 HCO3 ARTERIAL (BEAKER) (test kfne=829) 30 mmol/L 21-29 BASE EXCESS ARTERIAL (BEAKER) (test ntwb=509) 4.2 mmol/L -2.0-3.0 PATIENT TEMPERATURE (BEAKER) (test bpta=4134) 36.4 C FIO2 (BEAKER) (test jwyc=8775) 21.0 % [id number] 06:07:00* Test Item Value Reference Range Comments MAGNESIUM (BEAKER) (test almj=890) 2.3 mg/dL 1.6-2.6 Specimen slightly hemolyzed [id number] 06:07:00* Test Item Value Reference Range Comments PHOSPHORUS (BEAKER) (test tofi=808) 3.0 mg/dL 2.3-4.7 Specimen slightly hemolyzed COMPREHENSIVE METABOLIC [id number] 06:07:00* Test Item Value Reference Range Comments TOTAL PROTEIN (BEAKER) (test kbwl=637) 8.2 gm/dL 6.0-8.3 Specimen slightly hemolyzed ALBUMIN (BEAKER) (test gxra=3361) 3.6 g/dL 3.5-5.0 Specimen slightly hemolyzed ALKALINE PHOSPHATASE (BEAKER) (test otml=000) 107 U/L 40-150 BILIRUBIN TOTAL (BEAKER) (test eqfi=174) 1.4 mg/dL 0.2-1.2 Specimen slightly hemolyzed SODIUM (BEAKER) (test zogq=235) 136 meq/L 136-145 POTASSIUM (BEAKER) (test cdvk=808) 3.9 meq/L 3.5-5.1 Specimen slightly hemolyzed CHLORIDE (BEAKER) (test bhho=881) 99 meq/L 98-107 CO2 (BEAKER) (test cgci=552) 28 meq/L 22-29 BLOOD UREA NITROGEN (BEAKER) (test pzez=951) 28 mg/dL 7-21 CREATININE (BEAKER) (test tgxc=287) 1.32 mg/dL 0.57-1.25 Specimen slightly hemolyzed GLUCOSE RANDOM (BEAKER) (test bqjl=769) 129 mg/dL 70-105 CALCIUM (BEAKER) (test bnox=042) 9.2 mg/dL 8.4-10.2 AST (SGOT) (BEAKER) (test aoxp=953) 19 U/L 5-34 Specimen slightly hemolyzed ALT (SGPT) (BEAKER) (test aexq=581) 9 U/L 6-55 Specimen slightly hemolyzed EGFR (BEAKER) (test nsfk=6429) 56 mL/min/1.73 sq m ESTIMATED GFR IS NOT ACCURATE CREATININE CLEARANCE IN PREDICTING GLOMERULAR FILTRATION RATE. ESTIMATED GFR IS NOT APPLICABLE FOR DIALYSIS PATIENTS. PROTHROMBIN [id number] 05:42:00* Test Item Value Reference Range Comments PROTIME (BEAKER) (test yttz=373) 15.8 seconds 11.7-14.7 INR (BEAKER) (test jryy=277) 1.3 <=5.9 RECOMMENDED COUMADIN/WARFARIN INR THERAPY RANGESSTANDARD DOSE: 2.0 - 3.0 Inclu abby: PROPHYLAXIS for venous thrombosis, systemic embolization; TREATMENT for odalys ous thrombosis and/or pulmonary embolus.HIGH RISK: Target INR is 2.5-3.5 for pat ients with mechanical heart valves.PROTHROMBIN [id number] 21:53:00* Test Item Value Reference Range Comments PROTIME (BEAKER) (test lgzu=742) 16.1 seconds 11.7-14.7 INR (BEAKER) (test cppj=674) 1.3 <=5.9 RECOMMENDED COUMADIN/WARFARIN INR THERAPY RANGESSTANDARD DOSE: 2.0 - 3.0 Inclu abby: PROPHYLAXIS for venous thrombosis, systemic embolization; TREATMENT for odalys ous thrombosis and/or pulmonary embolus.HIGH RISK: Target INR is 2.5-3.5 for pat ients with mechanical heart valves.POCT-GLUCOSE [id number] 21:44:00* Test Item Value Reference Range Comments POC-GLUCOSE METER (BEAKER) (test eeaq=8516) 136 mg/dL 70-110 TESTED AT [facility] [address] [facility] [address] POCT-GLUCOSE [id number] 21:39:00* Test Item Value Reference Range Comments POC-GLUCOSE METER (BEAKER) (test jbwa=6997) 152 mg/dL 70-110 TESTED AT [facility] [address] [facility] [address] URINALYSIS W/ [id number] 16:31:00* Test Item Value Reference Range Comments COLOR (BEAKER) (test yebt=660) Yellow CLARITY (BEAKER) (test dsmx=039) Clear SPECIFIC GRAVITY UA (BEAKER) (test ggwr=653) 1.010 1.001-1.035 PH UA (BEAKER) (test zazs=271) 6.0 5.0-8.0 PROTEIN UA (BEAKER) (test ttxf=935) 20 mg/dL Negative GLUCOSE UA (BEAKER) (test nvbb=957) Negative Negative KETONES UA (BEAKER) (test kptd=521) Negative Negative BILIRUBIN UA (BEAKER) (test aswe=391) Negative Negative BLOOD UA (BEAKER) (test wohr=203) Moderate Negative NITRITE UA (BEAKER) (test ncxc=727) Negative Negative LEUKOCYTE ESTERASE UA (BEAKER) (test wzik=578) Trace Negative UROBILINOGEN UA (BEAKER) (test ixbs=456) 2.0 mg/dL 0.2-1.0 RBC UA (BEAKER) (test exsh=180) 76 /HPF WBC UA (BEAKER) (test penl=298) 22 /HPF BACTERIA (BEAKER) (test wigp=842) Occasional MUCUS (BEAKER) (test fwkx=2961) Rare HYALINE CASTS (BEAKER) (test idnb=791) 40 /LPF SOURCE(BEAKER) (test dbql=8744) Urine, Miranda PROTHROMBIN TIME/[id number] 12:52:00* Test Item Value Reference Range Comments PROTIME (BEAKER) (test fhep=043) 16.8 seconds 11.7-14.7 INR (BEAKER) (test yqzu=468) 1.4 <=5.9 RECOMMENDED COUMADIN/WARFARIN INR THERAPY RANGESSTANDARD DOSE: 2.0 - 3.0 Inclu abby: PROPHYLAXIS for venous thrombosis, systemic embolization; TREATMENT for odalys ous thrombosis and/or pulmonary embolus.HIGH RISK: Target INR is 2.5-3.5 for pat ients with mechanical heart valves.BLOOD GAS, [id number] 12:30:00* Test Item Value Reference Range Comments PH ARTERIAL (BEAKER) (test qqyn=645) 7.41 7.35-7.45 PCO2 ARTERIAL (BEAKER) (test ylxy=683) 50 mmHg 35-45 PO2 ARTERIAL (BEAKER) (test xqdt=884) 151 mmHg 80-90 O2 SATURATION ARTERIAL (BEAKER) (test jwtr=718) 99.0 % 96.0-97.0 HCO3 ARTERIAL (BEAKER) (test smhb=876) 31 mmol/L 21-29 BASE EXCESS ARTERIAL (BEAKER) (test olzj=024) 5.1 mmol/L -2.0-3.0 PATIENT TEMPERATURE (BEAKER) (test afxt=6141) 36.4 C FIO2 (BEAKER) (test jhhv=8750) 35.0 % POCT-GLUCOSE [id number] 11:55:00* Test Item Value Reference Range Comments POC-GLUCOSE METER (BEAKER) (test jizn=6192) 129 mg/dL 70-110 TESTED AT [address] [address] PLATELET AGGREGATION: FUNCTION [id number] 11:26:00* Test Item Value Reference Range Comments WEAK ADP RESULT(BEAKER) (test motv=8023) 100 % 60-91 PLATELET FUNCTION SCREEN INTERP (BEAKER) (test gvib=3746) 60-100% indicates normal platelet function CVPS-TRNHLRTRYNN-0500 (BEAKER) (test nipu=3017) Adriana Ramirez MD (electronic signature) PLATELET COUNT AGG (BEAKER) (test arhx=2901) 241 K/CU MM 150-430 [id number] 11:17:00* Test Item Value Reference Range Comments RPR SCREEN (BEAKER) (test rksa=032) Nonreactive Nonreactive CBC W/PLT COUNT & AUTO [id number] 10:58:00* Test Item Value Reference Range Comments WHITE BLOOD CELL COUNT (BEAKER) (test zjzk=268) 12.3 K/ L 4.0-10.0 RED BLOOD CELL COUNT (BEAKER) (test pqtt=261) 3.22 M/ L 4.20-5.80 HEMOGLOBIN (BEAKER) (test yfdh=242) 10.7 GM/DL 13.0-16.8 HEMATOCRIT (BEAKER) (test nxfh=728) 33.7 % 40.0-50.0 MEAN CORPUSCULAR VOLUME (BEAKER) (test ylgq=093) 105.0 fL 82.0-98.0 MEAN CORPUSCULAR HEMOGLOBIN (BEAKER) (test idis=016) 33.3 pg 27.0-33.0 MEAN CORPUSCULAR HEMOGLOBIN CONC (BEAKER) (test nvzj=104) 31.9 GM/DL 32.0-36.0 RED CELL DISTRIBUTION WIDTH (BEAKER) (test mbuz=813) 16.5 % 10.3-14.2 PLATELET COUNT (BEAKER) (test vmsm=144) 243 K/CU MM 150-430 MEAN PLATELET VOLUME (BEAKER) (test ovcq=787) 5.7 fL 6.5-10.5 NUCLEATED RED BLOOD CELLS (BEAKER) (test ijth=104) 0 /100 WBC 0-0 0.000.520.000.000.000.00(MANUAL DIFFERENTIAL)2017-01-24 10:58:00* Test Item Value Reference Range Comments NEUTROPHILS - REL (DIFF) (BEAKER) (test dpvu=7750) 84 % LYMPHOCYTES - REL (DIFF) (BEAKER) (test outt=2358) 2 % MONOCYTES - REL (DIFF) (BEAKER) (test oins=7609) 12 % BANDS - REL (DIFF) (BEAKER) (test bwbk=5824) 2 % 0-10 NEUTROPHILS - ABS (DIFF) (BEAKER) (test wpmg=1439) 10.33 K/ L 1.80-8.00 LYMPHOCYTES - ABS (DIFF) (BEAKER) (test frkf=8409) 0.25 K/ L 1.48-4.50 MONOCYTES - ABS (DIFF) (BEAKER) (test kmnr=0688) 1.48 K/ L 0.00-1.30 BANDS-ABS (DIFF) (BEAKER) (test iyyk=4241) 0.2 K/ L 0.0-0.8 TOTAL COUNTED (BEAKER) (test amgs=8840) 100 BANDS + SEGMENTED NEUTROPHILS (BEAKER) (test sqhz=7886) 10.58 WBC MORPHOLOGY (BEAKER) (test eons=493) Normal PLT MORPHOLOGY (BEAKER) (test vgyo=034) Normal MACROCYTES (BEAKER) (test cmsa=776) 1+ few POCT-GLUCOSE [id number] 08:05:00* Test Item Value Reference Range Comments POC-GLUCOSE METER (BEAKER) (test xqlc=9634) 124 mg/dL 70-110 TESTED AT [facility] [address] [facility] [address] BLOOD GAS, [id number] 05:10:00* Test Item Value Reference Range Comments PH ARTERIAL (BEAKER) (test qksa=196) 7.44 7.35-7.45 PCO2 ARTERIAL (BEAKER) (test tdvk=527) 44 mmHg 35-45 PO2 ARTERIAL (BEAKER) (test duvu=608) 251 mmHg 80-90 O2 SATURATION ARTERIAL (BEAKER) (test dghm=894) 99.6 % 96.0-97.0 HCO3 ARTERIAL (BEAKER) (test vcfg=183) 29 mmol/L 21-29 BASE EXCESS ARTERIAL (BEAKER) (test iyiu=947) 4.2 mmol/L -2.0-3.0 PATIENT TEMPERATURE (BEAKER) (test jwhb=2128) 36.8 C FIO2 (BEAKER) (test qtcb=1011) 60.0 % COMPREHENSIVE METABOLIC [id number] 05:07:00* Test Item Value Reference Range Comments TOTAL PROTEIN (BEAKER) (test tuln=906) 7.7 gm/dL 6.0-8.3 ALBUMIN (BEAKER) (test vfzw=9037) 3.5 g/dL 3.5-5.0 ALKALINE PHOSPHATASE (BEAKER) (test mjpo=777) 106 U/L 40-150 BILIRUBIN TOTAL (BEAKER) (test rzih=176) 1.4 mg/dL 0.2-1.2 SODIUM (BEAKER) (test pimf=068) 137 meq/L 136-145 POTASSIUM (BEAKER) (test ecbj=543) 3.7 meq/L 3.5-5.1 CHLORIDE (BEAKER) (test svtl=919) 101 meq/L 98-107 CO2 (BEAKER) (test jiht=204) 27 meq/L 22-29 BLOOD UREA NITROGEN (BEAKER) (test niyz=801) 27 mg/dL 7-21 CREATININE (BEAKER) (test gncm=668) 1.10 mg/dL 0.57-1.25 GLUCOSE RANDOM (BEAKER) (test pbrk=878) 134 mg/dL 70-105 CALCIUM (BEAKER) (test njhu=293) 9.3 mg/dL 8.4-10.2 AST (SGOT) (BEAKER) (test vabl=489) 14 U/L 5-34 ALT (SGPT) (BEAKER) (test vmcw=963) 10 U/L 6-55 EGFR (BEAKER) (test russ=8147) mL/min/1.73 sq m INSUFFICIENT CLINICAL DATA TO CALCULATE ESTIMATED GFR. [id number] 04:59:00* Test Item Value Reference Range Comments PHOSPHORUS (BEAKER) (test ffek=448) 2.2 mg/dL 2.3-4.7 [id number] 04:59:00* Test Item Value Reference Range Comments MAGNESIUM (BEAKER) (test icrl=117) 2.4 mg/dL 1.6-2.6 TROPONIN [id number] 00:53:00* Test Item Value Reference Range Comments TROPONIN I (LOWELLAKER) (test ngck=776) 0.02 ng/mL 0.00-0.03 Effective 06/14/2014: Reference Range ChangeNew: 0.00-0.03 Previous 0.00-0.15T roponin I (TnI) levels must be interpreted in the context of the presenting symp toms and the clinical findings. Elevated TnI levels indicate myocardial damage, but are not specific for ischemic heart disease. Elevated TnI levels are seen in patients with other cardiac conditions (including myocarditis and congestive he art failure), and slight TnI elevations occur in patients with other conditions, including sepsis, renal failure, acidosis, acute neurological disease, and pers istent tachyarrhythmia.At baseline and 24 hours after receiving FEIBAPOCT- GLUCOSE [id number] 00:52:00* Test Item Value Reference Range Comments POC-GLUCOSE METER (ADDISON) (test enqc=6396) 154 mg/dL 70-110 TESTED AT [facility] [address] [place] [address] PT/[id number] 00:05:00* Test Item Value Reference Range Comments PROTIME (LOWELLAKER) (test bknr=384) 17.4 seconds 11.7-14.7 INR (BEAKER) (test jrat=131) 1.4 <=5.9 PARTIAL THROMBOPLASTIN TIME (BEAKER) (test ghwv=211) 42.2 seconds 22.5-36.0 RECOMMENDED COUMADIN/WARFARIN INR THERAPY RANGESSTANDARD DOSE: 2.0 - 3.0 Inclu abby: PROPHYLAXIS for venous thrombosis, systemic embolization; TREATMENT for odalys ous thrombosis and/or pulmonary embolus.HIGH RISK: Target INR is 2.5-3.5 for pat ients with mechanical heart valves.Draw 10m after feiba infusionDraw 10m after F EIBA infusionDraw 10m after feiba infusionDraw 10m after FEIBA infusion PROTHROMBIN TIME/[id number] 00:04:00* Test Item Value Reference Range Comments PROTIME (BEAKER) (test fvdb=630) 17.4 seconds 11.7-14.7 INR (BEAKER) (test srhh=797) 1.4 <=5.9 RECOMMENDED COUMADIN/WARFARIN INR THERAPY RANGESSTANDARD DOSE: 2.0 - 3.0 Inclu abby: PROPHYLAXIS for venous thrombosis, systemic embolization; TREATMENT for odalys ous thrombosis and/or pulmonary embolus.HIGH RISK: Target INR is 2.5-3.5 for pat ients with mechanical heart valves.BLOOD GAS, [id number] 23:57:00* Test Item Value Reference Range Comments PH ARTERIAL (BEAKER) (test eqfp=266) 7.53 7.35-7.45 PCO2 ARTERIAL (BEAKER) (test ihhg=725) 31 mmHg 35-45 PO2 ARTERIAL (BEAKER) (test oukj=178) 215 mmHg 80-90 O2 SATURATION ARTERIAL (BEAKER) (test ejba=498) 99.6 % 96.0-97.0 HCO3 ARTERIAL (BEAKER) (test gjnh=679) 26 mmol/L 21-29 BASE EXCESS ARTERIAL (BEAKER) (test aawm=831) 3.6 mmol/L -2.0-3.0 PATIENT TEMPERATURE (BEAKER) (test fchz=8118) 36.4 C FIO2 (BEAKER) (test xskj=6879) 60.0 % PT/[id number] 23:15:00* Test Item Value Reference Range Comments PROTIME (BEAKER) (test dgcm=787) 16.7 seconds 11.7-14.7 INR (BEAKER) (test iwzt=942) 1.4 <=5.9 PARTIAL THROMBOPLASTIN TIME (BEAKER) (test pguv=404) 42.9 seconds 22.5-36.0 RECOMMENDED COUMADIN/WARFARIN INR THERAPY RANGESSTANDARD DOSE: 2.0 - 3.0 Inclu abby: PROPHYLAXIS for venous thrombosis, systemic embolization; TREATMENT for odalys ous thrombosis and/or pulmonary embolus.HIGH RISK: Target INR is 2.5-3.5 for pat ients with mechanical heart valves.level prior to infusions of each doses of BETO BAlevel prior to infusions of each doses of FEIBAHEMOGLOBIN [id number] 22:54:00* Test Item Value Reference Range Comments HEMOGLOBIN A1C (BEAKER) (test zcfc=563) 6.6 % 4.3-6.1 T4, [id number] 22:52:00* Test Item Value Reference Range Comments FREE T4 (BEAKER) (test gapm=821) 0.42 ng/dL 0.70-1.48 COMPREHENSIVE METABOLIC [id number] 22:23:00* Test Item Value Reference Range Comments TOTAL PROTEIN (BEAKER) (test apfl=859) 7.7 gm/dL 6.0-8.3 ALBUMIN (BEAKER) (test biej=9538) 3.5 g/dL 3.5-5.0 ALKALINE PHOSPHATASE (BEAKER) (test pvbz=545) 110 U/L 40-150 BILIRUBIN TOTAL (BEAKER) (test jwty=812) 1.1 mg/dL 0.2-1.2 SODIUM (BEAKER) (test weng=167) 136 meq/L 136-145 POTASSIUM (BEAKER) (test dils=383) 3.7 meq/L 3.5-5.1 CHLORIDE (BEAKER) (test uktb=688) 100 meq/L 98-107 CO2 (BEAKER) (test zocx=468) 27 meq/L 22-29 BLOOD UREA NITROGEN (BEAKER) (test ymrg=015) 30 mg/dL 7-21 CREATININE (BEAKER) (test snzc=473) 1.18 mg/dL 0.57-1.25 GLUCOSE RANDOM (BEAKER) (test iboc=788) 136 mg/dL 70-105 CALCIUM (BEAKER) (test cyom=408) 9.3 mg/dL 8.4-10.2 AST (SGOT) (BEAKER) (test pyct=915) 16 U/L 5-34 ALT (SGPT) (BEAKER) (test nsfs=317) 12 U/L 6-55 EGFR (BEAKER) (test mjci=9679) mL/min/1.73 sq m INSUFFICIENT CLINICAL DATA TO CALCULATE ESTIMATED GFR. [id number] 22:06:00* Test Item Value Reference Range Comments FIBRINOGEN LEVEL (BEAKER) (test wwwc=872) 494 mg/dl 225-434 level prior to infusions of each doses of FEIBAVITAMIN B12 AND [id number] 21:48:00* Test Item Value Reference Range Comments VITAMIN B12 (BEAKER) (test cmds=613) 631 pg/mL 213-816 FOLATE (BEAKER) (test nmzd=440) 19.3 ng/mL >=7.0 Effective 06/14/2014: Folate Reference Range ChangeNew: >=7.0 Previous: >=5.4 TSH/FREE T4 IF [id number] 21:48:00* Test Item Value Reference Range Comments THYROID STIMULATING HORMONE (BEAKER) (test usgo=669) 32.85 uIU/mL 0.35-4.94 LIPID [id number] 21:11:00* Test Item Value Reference Range Comments TRIGLYCERIDES (BEAKER) (test pohc=513) 150 mg/dL Specimen markedly hemolyzed CHOLESTEROL (BEAKER) (test ckvp=577) 222 mg/dL Specimen markedly hemolyzed HDL CHOLESTEROL (BEAKER) (test jdrb=873) 32 mg/dL LDL CHOLESTEROL CALCULATED (BEAKER) (test iqpk=507) 160 mg/dL Triglyceride Reference Range: Low Risk <150 Borderline 150-199 High Risk 200-499 Very High Risk >=500Cholesterol Reference Range: Low Risk <200 Borderline 200-239 High Risk >240HDL Cholesterol Reference Range: Low Risk >=60 High Risk <40LDL Cholesterol Reference Range: Optimal <100 Near Optimal 100-129 Borderline 130-159 High 160-189 Very High >=190 Specimen slightly [id number] 21:08:00* Test Item Value Reference Range Comments MAGNESIUM (BEAKER) (test kduy=364) 3.8 mg/dL 1.6-2.6 Specimen markedly hemolyzed [id number] 21:08:00* Test Item Value Reference Range Comments PHOSPHORUS (BEAKER) (test tnce=671) 3.0 mg/dL 2.3-4.7 Specimen markedly hemolyzed PT/[id number] 20:41:00* Test Item Value Reference Range Comments PROTIME (BEAKER) (test awze=624) 36.2 seconds 11.7-14.7 INR (BEAKER) (test rttb=075) 3.6 <=5.9 PARTIAL THROMBOPLASTIN TIME (BEAKER) (test hkos=426) 62.3 seconds 22.5-36.0 RECOMMENDED COUMADIN/WARFARIN INR THERAPY RANGESSTANDARD DOSE: 2.0 - 3.0 Inclu abby: PROPHYLAXIS for venous thrombosis, systemic embolization; TREATMENT for odalys ous thrombosis and/or pulmonary embolus.HIGH RISK: Target INR is 2.5-3.5 for pat ients with mechanical heart valves.[id number] 20:41:00* Test Item Value Reference Range Comments PARTIAL THROMBOPLASTIN TIME (BEAKER) (test vtia=617) 62.3 seconds 22.5-36.0 PROTHROMBIN TIME/[id number] 20:40:00* Test Item Value Reference Range Comments PROTIME (BEAKER) (test guwv=144) 36.2 seconds 11.7-14.7 INR (BEAKER) (test zxbb=086) 3.6 <=5.9 RECOMMENDED COUMADIN/WARFARIN INR THERAPY RANGESSTANDARD DOSE: 2.0 - 3.0 Inclu abby: PROPHYLAXIS for venous thrombosis, systemic embolization; TREATMENT for odalys ous thrombosis and/or pulmonary embolus.HIGH RISK: Target INR is 2.5-3.5 for pat ients with mechanical heart valves.CBC W/PLT COUNT & AUTO [id number] 20:35:00* Test Item Value Reference Range Comments WHITE BLOOD CELL COUNT (BEAKER) (test lhff=939) 10.5 K/ L 4.0-10.0 RED BLOOD CELL COUNT (BEAKER) (test tidg=127) 3.17 M/ L 4.20-5.80 HEMOGLOBIN (BEAKER) (test sssi=414) 11.1 GM/DL 13.0-16.8 HEMATOCRIT (BEAKER) (test uvyg=187) 33.4 % 40.0-50.0 MEAN CORPUSCULAR VOLUME (BEAKER) (test macs=913) 106.0 fL 82.0-98.0 MEAN CORPUSCULAR HEMOGLOBIN (BEAKER) (test howy=667) 34.9 pg 27.0-33.0 MEAN CORPUSCULAR HEMOGLOBIN CONC (BEAKER) (test hvxc=858) 33.1 GM/DL 32.0-36.0 RED CELL DISTRIBUTION WIDTH (BEAKER) (test ogur=800) 17.0 % 10.3-14.2 PLATELET COUNT (BEAKER) (test nqtt=254) 173 K/CU MM 150-430 MEAN PLATELET VOLUME (BEAKER) (test nhgw=391) 6.7 fL 6.5-10.5 NUCLEATED RED BLOOD CELLS (BEAKER) (test qbvq=812) 0 /100 WBC 0-0 NEUTROPHILS RELATIVE PERCENT (BEAKER) (test ysou=911) 88 % LYMPHOCYTES RELATIVE PERCENT (BEAKER) (test rqtu=735) 4 % MONOCYTES RELATIVE PERCENT (BEAKER) (test xtnk=287) 7 % EOSINOPHILS RELATIVE PERCENT (BEAKER) (test dofc=007) 1 % BASOPHILS RELATIVE PERCENT (BEAKER) (test yfkh=191) 0 % NEUTROPHILS ABSOLUTE COUNT (BEAKER) (test iura=471) 9.27 K/ L 1.80-8.00 LYMPHOCYTES ABSOLUTE COUNT (BEAKER) (test pcbb=213) 0.46 K/ L 1.48-4.50 MONOCYTES ABSOLUTE COUNT (BEAKER) (test eios=092) 0.71 K/ L 0.00-1.30 EOSINOPHILS ABSOLUTE COUNT (BEAKER) (test vkwp=986) 0.08 K/ L 0.00-0.50 BASOPHILS ABSOLUTE COUNT (BEAKER) (test bhwq=588) 0.02 K/ L 0.00-0.20
--- NOTE | 2018-12-22 07:05 | NUR ---
SPIRITUAL CARE - Pre-Surgery Assessment: Pt in bed. Pt reported supportive attention from family and friends. Intervention: I provided pastoral presence, hospitality, and sympathetic listening. I acquainted pt with availability of rubber and pounder while hospitalized. Outcome: Pt expressed appreciation for visit. No need for follow up indicated at this time. NATHANIEL Schillinglain Spiritual Care Department O: [phone] Pager: [phone] ([phone] calling from)
[2018-12-22 07:26] LABS: ANION GAP 9.5 mmol/L (8-16); BLOOD UREA NITROGEN 11 mg/dL (7-26); BUN/CREATININE RATIO 12 (6-25); CALCIUM 9.2 mg/dL (8.4-10.2); CARBON DIOXIDE 21 mmol/L (22-29); CHLORIDE 107 mmol/L (98-107); CREATININE, SERUM 0.94 mg/dL (0.72-1.25); EST GLOMERULAR FILTRATION RATE > 60 ML/MIN (60-); GLUCOSE 93 mg/dL (74-118); POTASSIUM 3.5 mmol/L (3.5-5.1); SODIUM 134 mmol/L (136-145)
--- NOTE | 2018-12-22 17:14 | Operative Report ---
DATE OF PROCEDURE: 12/22/2018 SURGEON: Akshat Nichole MD HISTORY: This patient is a 58-year-old male, who has a large hematoma on the anterior surface of the left leg. The patient was scheduled for surgery approximately 1 to 2 weeks ago, but per Anesthesia guidelines required cardiac clearance. Once this was obtained, the patient presented to the preop area this morning. The chief of anesthesia attempted to interview the patient concerning his past medical and surgical history. According to the chief of anesthesia, the patient was quite recalcitrant and they refused to answer his questions. The chief of anesthesia then felt that the patient could not safely receive intravenous sedation for the case. Given the patient's lack of willingness to participate in the interview process. I offered the patient to perform the procedure under local anesthesia. He declined and signed out AMA after I had already left the hospital, OR called and said that the patient had reconsidered and would do the case under local, but since I had already left the facility I was unable to do so. The patient will be treated on an outpatient basis. MD NAM Brennan/BEVERLYL /[id number]
== END | disposition left against medical advice (07) ==
LOC: OR 05:25
PROVIDERS: ATTEND Plastic Surgery
DX: M79.81 Nontraumatic hematoma of soft tissue (principal); I10 Essential (primary) hypertension; Z01.810 Encounter for preprocedural cardiovascular examination; Z01.812 Encounter for preprocedural laboratory examination; Z53.21 Procedure and treatment not carried out due to patient leaving prior to being seen by health care provider
CPT/HCPCS: 36415; 80048; 93005; J0690